=== PATIENT | female | born 1985 | race Caucasian/White ===

== ENCOUNTER → 2021-11-05 02:29 | Outpatient (CLI) | payer BC, SELFPAY ==
[2021-11-06 15:55] LABS: SARS-CoV-2 RNA PCR Negative
== END ==
PROVIDERS: PCP Family Medicine; Visit Provider Family Medicine
DX: R51.9 Headache, unspecified (principal); R11.0 Nausea; Z20.822 Contact with and (suspected) exposure to COVID-19
CPT/HCPCS: C9803; U0003; U0005

== ENCOUNTER 2022-02-06 14:13 | Outpatient (CLI) | payer BC, SELFPAY ==
--- NOTE | ~2022-02-06 | US_ITS ---
EXAMINATION: US OB <=14 wk fetus w TV DATE: 02/06/2022 15:30 INDICATION: Assess dating and viability of first trimester TECHNIQUE: Real-time pelvic ultrasound utilizing both a transvaginal and transabdominal probe was pe rformed. The interpreting radiologist was not present for the study. COMPARISON: None. FINDINGS: The uterus measures 14.1 x 5.1 x 6.9 cm. There is an intrauterine gestational sac. A yolk sac and fe radha pole are identified. The crown rump length measures 2.6 cm, which correlates with an estimated ge stational age of 9 weeks and 2 days. heart motion is identified measuring 172 beats per minute (bpm) by M-mode Doppler. 1 cm anechoic nabothian cyst at the cervix. The right ovary measures 2.9 x 2.5 x 1.9 cm. The left ovary not visualized. There is no free fluid in the pelvis. IMPRESSION: 1. Single living fetus with heart rate of 172 bpm. 2. Gestational age by ultrasound of 9 weeks 2 day(s) +/- 6 day(s) with ultrasound estimated date of delivery (ONEIL) of 09/09/2022. Reviewed, dictated and finalized at location A. IMPRESSION: 1. Single living fetus with heart rate of 172 bpm. 2. Gestational age by ultrasound of 9 weeks 2 day(s) +/- 6 day(s) with ultraso und estimated date of delivery (ONEIL) of 09/09/2022.
== END 2022-02-06 14:14 | disposition home or self-care (01) ==
LOC: ANHIMG 14:14
PROVIDERS: PCP Family Medicine; Visit Provider Student in an Organized Health Care Education/Training Program
DX: O36.80X0 Pregnancy with inconclusive fetal viability, not applicable or unspecified (principal); Z3A.09 9 weeks gestation of pregnancy
CPT/HCPCS: 76801; 76817

== ENCOUNTER 2022-07-13 13:31 | Outpatient (CLI) | payer BC, SELFPAY ==
[2022-07-13 13:44] VITALS: BP 118/77; PULSE 98
[2022-07-13 13:46] VITALS: BP 112/70; PULSE 98
[2022-07-13 14:00] VITALS: BP 114/65; PULSE 93
[2022-07-13 14:15] VITALS: BP 108/72; PULSE 97
[2022-07-13 14:29] LABS: Basophils Percent Auto 0.3 % (0.2-1.2); Eosinophils Absolute Auto 0.1 K/mm3 (0-0.3); Eosinophils Percent Auto 0.7 % (0-4.4); Hemoglobin 10.5 g/dL (12.0-15.0); Immature Granulocyte Absolute 0.07 K/mm3 (0.00-0.031); Immature Granulocyte Percent A 0.7 % (0-0.5); Lymphocytes Absolute Auto 1.47 K/mm3 (0.9-3.2); Mean Corpuscular HGB Conc 32.8 g/dl (32-36); Mean Corpuscular Hemoglobin 30.2 pg (26-34); Mean Platelet Volume 8.8 fl (7.4-10.4); Monocytes Absolute Auto 0.5 K/mm3 (0.1-0.6); Monocytes Percent Auto 4.9 % (2.6-8.5); Neutrophils Absolute Auto 8.4 K/mm3 (1.3-6.7); Neutrophils Percent Auto 79.4 % (45.5-73.1); Platelet Count Result 289 k/mm3 (150-375); Red Blood Count 3.48 M/mm3 (4.2-5.4); Red Cell Distribution Width 13.7 % (11.5-14.5); White Blood Count 10.5 K/mm3 (4.5-10.0)
--- NOTE | 2022-07-13 14:36 | PC.NURSE ---
Dr. Torres returned call and informed FHT's reactive with 20 beat accels at 31 wks gestation, pt marking and feeling good movement now. ROM plus was negative. 31 wk labs were drawn as requested. OK to discharge to home.
[2022-07-13 14:37] VITALS: BP 108/72; PULSE 97
[2022-07-13 15:53] LABS: Rapid Plasma Reagin Non-Reactive (NonReactive)
[2022-07-14 00:41] LABS: HIV 1/2 Ab P24 Ag Result Negative (Negative)
== END 2022-07-13 14:40 | disposition home or self-care (01) ==
LOC: ANHOBOP 13:35 → ANHOBPP 13:35
PROVIDERS: PCP Family Medicine; Visit Provider Student in an Organized Health Care Education/Training Program
DX: O36.8190 Decreased fetal movements, unspecified trimester, not applicable or unspecified (principal); Z3A.00 Weeks of gestation of pregnancy not specified
CPT/HCPCS: 36415; 59025; 84112; 85025; 86592; 86703; 99199; G0432

== ENCOUNTER 2022-08-29 07:24 | Outpatient (RCR) | payer BC, SELFPAY ==
[2022-07-18 09:44] VITALS: BP 115/73; PULSE 102
[2022-08-29 08:20] VITALS: BP 133/79; PULSE 99
== END 2022-09-22 07:42 | disposition home or self-care (01) ==
LOC: ANHOBOP 07:24
PROVIDERS: PCP Family Medicine; Visit Provider Student in an Organized Health Care Education/Training Program
DX: O36.8130 Decreased fetal movements, third trimester, not applicable or unspecified (principal); Z3A.32 32 weeks gestation of pregnancy; Z3A.37 37 weeks gestation of pregnancy
CPT/HCPCS: 59025

== ENCOUNTER 2022-08-29 11:42 | Observation (INO) | payer BC, SELFPAY ==
[2022-08-29 11:55] VITALS: BP 130/88; PULSE 93
[2022-08-29 12:00] VITALS: BP 124/80; PULSE 91
--- NOTE | 2022-08-29 12:05 | PC.NURSE ---
called Dr. Torres notified pt here due to fall. Pt states caught herself with hand and Knee and hit right side of abdomen. Order received to monitor for one hour and if reactive okay to discharge
[2022-08-29 12:15] VITALS: BP 126/80; PULSE 90
[2022-08-29 12:30] VITALS: BP 119/79; PULSE 89
[2022-08-29 12:45] VITALS: BP 124/78; PULSE 84
--- NOTE | 2022-08-29 12:58 | PC.NURSE ---
called Dr. Torres reported reactive NST. also made aware of pt asking about ultrasound.Dr. Torres states now need for ultrasound. okay to discharge.
[2022-08-29 13:00] VITALS: BP 119/76; PULSE 82
--- NOTE | 2022-09-19 17:53 | PM.OBTRLD ---
OB - Triage/Final Diagnosis Visit Information Comments/Additional reasons for admission: I have assessed the risk for this patient, Dana Darling, and determined that she would benefit from observation care. Final Diagnosis (1) Fall: Code(s): W19.XXXA - Unspecified fall, initial encounter Status: Acute
== END 2022-08-29 13:30 | disposition home or self-care (01) ==
PROVIDERS: Admitting Provider Student in an Organized Health Care Education/Training Program; PCP Family Medicine; Visit Provider Student in an Organized Health Care Education/Training Program
DX: Z04.3 Encounter for examination and observation following other accident (principal); W19.XXXA Unspecified fall, initial encounter; Z3A.38 38 weeks gestation of pregnancy
CPT/HCPCS: G0378; G0379

== ENCOUNTER 2022-08-31 07:56 | Outpatient (CLI) | payer BC, SELFPAY ==
[2022-08-31 08:35] LABS: Basophils Percent Auto 0.3 % (0.2-1.2); Eosinophils Percent Auto 0.2 % (0-4.4); Hematocrit 34.8 % (37.0-47.0); Hemoglobin 11.4 g/dL (12.0-15.0); Immature Granulocyte Absolute 0.07 K/mm3 (0.00-0.031); Immature Granulocyte Percent A 0.7 % (0-0.5); Lymphocytes Absolute Auto 1.11 K/mm3 (0.9-3.2); Lymphocytes Percent Auto 11.2 % (18.3-44.2); Mean Corpuscular HGB Conc 32.8 g/dl (32-36); Mean Corpuscular Volume 91.6 fl (80-100); Mean Platelet Volume 9.1 fl (7.4-10.4); Monocytes Absolute Auto 0.4 K/mm3 (0.1-0.6); Monocytes Percent Auto 3.9 % (2.6-8.5); Neutrophils Absolute Auto 8.3 K/mm3 (1.3-6.7); Neutrophils Percent Auto 83.7 % (45.5-73.1); Platelet Count Result 294 k/mm3 (150-375); Red Cell Distribution Width 14.4 % (11.5-14.5); White Blood Count 9.9 K/mm3 (4.5-10.0)
[2022-08-31 09:20] LABS: HIV 1/2 Ab P24 Ag Result Negative (Negative)
[2022-09-01 17:06] LABS: Rapid Plasma Reagin Non-Reactive (NonReactive)
== END 2022-08-31 07:57 | disposition home or self-care (01) ==
LOC: ANHLAB 07:58
PROVIDERS: PCP Family Medicine; Visit Provider Student in an Organized Health Care Education/Training Program
DX: Z01.812 Encounter for preprocedural laboratory examination (principal); O26.893 Other specified pregnancy related conditions, third trimester
CPT/HCPCS: 36415; 85025; 86592; 86703; 86900; 86901; G0432

== ENCOUNTER 2022-09-01 05:33 | Inpatient (IN) | payer BC, SELFPAY ==
--- NOTE | 2022-08-31 18:02 | PM.IMHP ---
H&P: HPI History of Present Illness Date/Time: 08/31/22 18:02 Chief Complaint: Scheduled repeat section Narrative: Patient is a 36-year-old LMP 12/02/2021 currently 39 weeks gestation with ONEIL 09/08/2022 who presented to labor and delivery for a scheduled repeat section. Patient is dated by LMP consistent with ultrasound on 02/06/2022 at 9 weeks gestation. Patient has a history of a previous section x1. She was extensively counseled regarding delivery options. Patient declined TOLAC and desires a repeat section. In general, patient reports feeling well today. Denies any vaginal bleeding, leakage of fluid, or contractions. Reports good movement. Review of Systems Review of Systems: All systems reviewed & are unremarkable except as noted in HPI and below Constitutional: Constitutional: Reports as per HPI and Reports no additional constitutional complaints Eyes: Eyes: Reports as per HPI and Reports no additional eye complaints ENT: Reports system reviewed and no additional complaints, except as documented and Reports as per HPI Cardiovascular: Cardiovascular: Reports as per HPI and Reports no additional cardiovascular complaints Respiratory: Respiratory: Reports as per HPI and Reports no additional respiratory complaints Gastrointestinal: Gastrointestinal: Reports as per HPI and Reports no additional gastrointestinal complaints Genitourinary: Genitourinary: Reports no additional female genitourinary complaints and Reports as per HPI Musculoskeletal: Musculoskeletal: Reports no additional musculoskeletal complaints and Reports as per HPI Integumentary/Breasts: Skin/Breast: Reports system reviewed and no additional complaints, except as docu and Reports as per HPI Neurologic: Reports system reviewed and no additional complaints, except as documented and Reports as per HPI Psychiatric: Psychiatric: Reports no additional psychiatric complaints and Reports as per HPI Endocrine: Endocrine: Reports no additional endocrine complaints and Reports as per HPI Hematologic/Lymphatic: Hematologic/Lymphatic: Reports no additional hematologic/lymphatic complaints and Reports as per HPI Allergic/Immunologic: Allergic/Immunologic: Reports no additional allergic/immunologic complaints and Reports as per HPI PMFSH Past Medical History Medical History Chronic headaches Migraines Surgical History Surgical History History of section 2014 History of urinary tract surgery 1991 Family History Family History Father B-cell lymphoma Diabetes mellitus Mother Diabetes mellitus Hypertension Depression Sibling Depression Grandparent Cerebrovascular accident Social History Social History Smoking status: Never smoker Alcohol intake: never Substance use: never Spiritual care concerns: No Meds Home Medications and Allergies Home Medications Medication Instructions Recorded Confirmed Type montelukast 10 mg tablet 10 mg PO DAILY 11/10/21 05/17/22 History vits 75-iron 28 mg-folic 1 pkg PO DAILY 01/26/22 08/24/22 History acid 800 mcg-omega-3 oral combo pack (One A Day Women's DHA) ferrous sulfate 325 mg (65 mg 325 mg PO DAILY #90 tabs 07/17/22 08/24/22 Rx iron) tablet Allergies Allergy/AdvReac Type Severity Reaction Status Date / Time No Known Allergies Allergy Verified 08/24/22 12:08 Exam Const: General: cooperative, healthy appearing, comfortable and no acute distress HENMT: Head: normal to inspection Ears: hearing grossly normal bilaterally Eyes: General: appearance normal, both eyes and all related structures Neck: Neck: normal visual inspection Resp: Effort & Inspection: normal respirator
[2022-09-01] VITALS (58 sets, daily range): BP systolic 112–135; BP diastolic 65–99; PULSE 67–103; RESP 15–18; TEMP 36.6–37.6; O2SAT 96–100; BMI 46.5
--- NOTE | 2022-09-01 05:55 | LDADM ---
This patient, Dana Darling, was admitted to Labor/Delivery/Recovery 120 on 09/01/22 at 05:33. Plans for labor, pain management and were discussed with patient. Patient/family oriented to hospital policies and general routines including ID bracelet, bed and alarms, visiting hours, pain management, procedures, bathroom and other care routines, personal items, smoking policy, room service/diet and guest tray routines, security routines, and visiting hours. Patient/Family are encouraged to report perceived risks to care and to ask questions if they do not understand what they are told or what they should do. See OBIX for further documentation.
[2022-09-01] MEDS: LACTATED RINGERS 1,000 ML 125 ML IV CONT (05:58)
--- NOTE | 2022-09-01 06:37 | P.PNAN_ITS ---
Anes - Initial Pre Proc Eval Procedure: Operation Date: 09/01/22 07:30 Proposed Procedures p Repeat Section - Yolanda Torres MD Date/Time: 09/01/22 06:37 Surgeon: Yolanda Torres MD Pre Op Diagnosis: C/S Patient Data Age: 36 Gender: F Height: 1.55 m Weight: 111.8 kg Last Vital Signs Temp 37.3 C 09/01/22 06:09 Pulse 95 09/01/22 06:08 BP 125/83 09/01/22 06:08 O2 Del Method Room Air 09/01/22 05:51 Allergies Allergy/AdvReac Type Severity Reaction Status Date / Time No Known Allergies Allergy Verified 09/01/22 06:22 Home Medications Medication Instructions Recorded Confirmed Type montelukast 10 mg tablet 10 mg PO DAILY 11/10/21 09/01/22 History vits 75-iron 28 mg-folic 1 pkg PO DAILY 01/26/22 09/01/22 History acid 800 mcg-omega-3 oral combo pack (One A Day Women's DHA) ferrous sulfate 325 mg (65 mg 325 mg PO DAILY #90 tabs 07/17/22 09/01/22 Rx iron) tablet Patient hx anesthesia problems: none Family hx anesthesia problems: none Results Review: All pre-operative results and documents have been reviewed as part of the pre- operative evaluation. [facility] Past Medical History Medical History Chronic headaches Migraines Surgical History Surgical History History of section 2014 History of urinary tract surgery 1991 Family History Family History Father B-cell lymphoma Diabetes mellitus Mother Diabetes mellitus Hypertension Depression Sibling Depression Grandparent Cerebrovascular accident Social History Social History Smoking status: Never smoker Alcohol intake: never Substance use: never Lack of Transportation: No Lack of Food: Never True Current Housing: I Have Housing Concerned About Future Housing: No Difficulty Paying Gas/Electric Bills: No Difficulty Paying for Meds: No Currently Unemployed: No Education: Bachelor's Degree Difficulty w/ Childcare or Family Care: No Spiritual care concerns: No Anes - Eval Final PreProcedure Day of Procedure 09/01/22 06:37 Patient weight: morbidly obese Heart: regular rate and rhythm Lungs: clear to auscultation Airway: Mallampati scale class II Neurological: alert and oriented Last oral intake: >/= 8 hours ASA classification: III Emergent: no Anesthetic plan: proceed Anesthesia type and monitoring: regional spinal and standard monitoring Results Review: All pre-operative results and documents have been reviewed as part of the pre- operative evaluation. Informed Consent: The patient's anesthetic plan and its attendant risks and benefits were discussed with the patient/family/POA. Questions were solicited and answers provided to the satisfaction of the patient/family/POA.
[2022-09-01] MEDS: ceFAZolin 2 GM/D5W 50 ML 2 GM/50 ML BAG IVPB (07:27)
--- NOTE | 2022-09-01 07:27 | WPDHPUPDATE1 ---
History and Physical Update Update Date/Time: 09/01/22 07:27 History and Physical has been reviewed, including an updated exam of the patient. There are NO changes in the patient's condition. Risks, benefits, and alternatives have been discussed and questions answered. Patient agrees to proceed with procedure.
--- NOTE | 2022-09-01 08:38 | W.PM.PROC2 ---
Procedure Note - Detailed Date of Procedure 09/01/22 Pre-op Diagnosis IUP at 39w Previous section x 1 Post-op Diagnosis Same Procedure Performed Repeat section via Pfannenstiel Surgeon Yolanda Torres MD [employer] Level Business [employer]st Malachi Muniz Anesthesia Spinal Findings Live female infant in cephalic presentation, apgars 8/9, weighing 9 lbs. 8 oz., normal appearing uterus, ovaries, and fallopian tubes bilaterally Description of Procedure The patient was taken to the operating room, where she self-transferred to the operating room table. Spinal anesthesia was administered and found to be adequate. The patient was placed in dorsal supine position with a leftward tilt. She was prepped and draped in the usual sterile fashion. Spinal anesthesia was tested and found to be adequate. A Pfannenstiel skin incision was made with a scalpel and carried through to underlying layer of fascia with the Bovie. The fascia was incised in the midline and the incision was extended laterally with the use of forceps and Graves scissors. The inferior aspect of the fascial incision was grasped with Oracio clamps, elevated, and the underlying rectus muscle were dissected off with Graves scissors. Attention was then turned to the superior aspect of the fascial incision, which in a similar manner, was grasped with Oracio clamps, elevated, and the underlying rectus muscles were also dissected off with Graves scissors. The rectus muscles were in the midline and the peritoneal cavity was entered bluntly. This incision was extended superiorly and inferiorly with good visualization of the bladder and care was taken to avoid blood vessels. A bladder blade was inserted. The vesicouterine peritoneum was identified and incised sharply with Metzenbaum scissors. This incision was extended laterally with Metzenbaum scissors and a bladder flap was created digitally. The bladder blade was replaced. A low-transverse uterine incision was made with a scalpel. This incision was extended laterally with bandage scissors. Amniotomy was performed. Clear amniotic fluid was noted. The 's head was grasped and gently guided to the level of the uterine incision. The 's head was delivered easily and atraumatically without difficulty. A nuchal cord x 1 was noted and reduced. The infant's neck, shoulders, and rest of body delivered easily with gentle fundal pressure. The 's nose and mouth were suctioned bulb suction. The was crying spontaneously. The cord was clamped and cut and the was handed off to waiting nursing staff. A segment of cord was collected for cord gases. Cord blood was also collected. With gentle traction while delivering the placenta, the uterus completely inverted. The placenta appeared to be slightly adherent (more than expected) to the surface of the endometrium, however, was able to be manually . There was some concern for possible accreta and the placenta was handed off field to be sent to pathology for analysis. Uterus was then quickly and easily manually reduced and normal anatomy was restored. Uterus was cleared of all clots and debris. The uterine incision was reapproximated with 0 Vicryl in a running, locked fashion. A second imbricating layer using 0 Monocryl performed. Excellent hemostasis was noted. On inspection, the uterus, ovaries, and fallopian tubes appeared to be normal bilaterally. The uterus was replaced into the abdominal cavity. The gutters were cleared of all clots and debris. The uterine incision was inspected again. Two pinpoint areas of oozing just beneath incision were noted. These areas were made hemostatic with two figure of eight sutures using 0 Monocryl. Excellent hemostasis was noted. Hemaderm was applied across the uterine incision. Interceed was also applied across the uterine incision and anterior surface of the uterus. The peritoneum was reapproximated with 2-0 Monocryl. The fascia was then closed with 0 Vicryl in a running f
--- NOTE | 2022-09-01 09:12 | P.PCNOB_ITS ---
OB - Delivery Note Procedure Delivery date: 09/01/22 Procedure: Procedures Operation Date: 09/01/22 07:30 <No data on this case meets the specified criteria> Events: Previous Delivery Intrapartal Events: Other (uterine inversion) Route of delivery: Specimen: Yes (placenta and cord, cord blood, and cord gases) Quantitative Blood Loss (ml): 505 Anesthesia type: Spinal Disposition: PACU Complications: No immediate complications, however, complete uterine inversion occurred during procedure [place] Baby Date of : 09/01/22 Time of : 07:51 Weeks of gestation at delivery: 39 Infant gender: Female Weight (pounds): 9 Weight (ounces): 8 presentation: vertex Placenta delivery description: Manual Removal Cord Vessel Description: Nuchal Cord (x1) score one minute: 8 score five minutes: 9 AMG Delivery Billing Delivery Delivery: Delivery Charge
[2022-09-01] MEDS: OXYTOCIN 30 UNITS/NS 500 ML 30 UNITS/500 ML BAG 125 UNITS IV CONT (10:27)
--- NOTE | 2022-09-01 10:43 | PC.NURSE ---
Patient transferred to post room #285 via ( bed ). Support person present. Oriented to unit, room, information board, rooming in, admission packet and security measures. Patient verbalizes understanding.
--- NOTE | 2022-09-01 11:22 | PC.NURSE ---
[id number] Introductions were made, then consulted with patient to assess needs related to . Mother led the conversation with her?experience so far stating she was told her hold her tongue up and she breastfed on/off. We discussed the benefits of skin to skin (unwrapping infant and placing vertically on her chest), responsive feeding and how to watch for early feeding signs, frequency of feeding on demand about every 8-12 times in 24 hours (every 2-3 hours), getting blood sugars before feeding or if it has been 6 hours from the last feeding may be very sleeping today especially hours 2-6 after delivery. Mother voiced understanding of responsive feedings, stimulating with skin to skin, massage touch, talking to to encourage , to call if does not wake to breastfeed or if there is discomfort with . Resources provided for inpatient and outpatient services using a resource guide. Mother voiced understanding of information and will call if there is a request for assistance. Primary RN is present and is reviewing PP packet now with the mom/baby guide.
[2022-09-01] MEDS: DEXTROSE 5%/0.45% SOD CHL 1,000 ML 125 ML IV CONT (14:53)
[2022-09-01] MEDS: HYDROcodone/acetaminophen (*CRX) 5-325 MG TABLET 1 TAB PO ×2 (16:29→21:11)
[2022-09-01] MEDS: DOCUSATE SODIUM 100 MG CAPSULE PO (16:30)
--- NOTE | 2022-09-01 17:10 | PM.OBPNVD ---
OB - PN: Subj Subjective Date/time seen: 09/01/22 09:15 Discussion had with patient and in PACU shortly after surgery regarding operative findings, including the uterine inversion and densely adherent placenta, suggestive of placenta accreta. Described to patient what occurred and that the placenta had to be peeled off of the surface of the uterus similar to detaching velcro, which is abnormal. Although not previously suspected or diagnosed, I expressed concern that this may have been placenta accreta. Explained what placenta accreta is in detail to patient and as well as some of the risk factors for developing this condition. Also discussed possible risk of recurrence in future pregnancies and potential for placenta accreta spectrum. Patient made aware that should she become again, will need to seek MFM evaluation early on. Also briefly discussed that if she were to develop placenta accreta spectrum in the future, she would definitively need care and delivery at a tertiary care center and that it is quite possible that she would be scheduled to deliver early with a planned hysterectomy. Reassured patient that surgery today went well, however, I have a high suspicion for placenta accreta and that they may wish to take this into consideration when deciding whether or not to pursue another and may even benefit from an MFM consult beforehand. All questions and concerns addressed. OB - PN A/P Time Spent With Patient Time: Total time spent is greater than 50% in coordination of care (as documented) at patient's floor/unit and/or counseling patient:
[2022-09-02] MEDS: HYDROcodone/acetaminophen (*CRX) 10-325 MG TABLET 1 TAB PO ×4 (02:44→13:32)
[2022-09-02 05:12] VITALS: BP 123/78; PULSE 82; RESP 18; TEMP 37.1; O2SAT 96
[2022-09-02 05:53] LABS: Basophils Percent Auto 0.2 % (0.2-1.2); Eosinophils Absolute Auto 0.1 K/mm3 (0-0.3); Eosinophils Percent Auto 0.4 % (0-4.4); Hematocrit 33.5 % (37.0-47.0); Immature Granulocyte Absolute 0.07 K/mm3 (0.00-0.031); Immature Granulocyte Percent A 0.6 % (0-0.5); Lymphocytes Percent Auto 8.2 % (18.3-44.2); Mean Corpuscular HGB Conc 32.8 g/dl (32-36); Mean Corpuscular Hemoglobin 29.5 pg (26-34); Mean Corpuscular Volume 89.8 fl (80-100); Monocytes Absolute Auto 0.7 K/mm3 (0.1-0.6); Neutrophils Absolute Auto 10.3 K/mm3 (1.3-6.7); Neutrophils Percent Auto 84.6 % (45.5-73.1); Platelet Count Result 274 k/mm3 (150-375); Red Blood Count 3.73 M/mm3 (4.2-5.4); Red Cell Distribution Width 14.4 % (11.5-14.5); White Blood Count 12.1 K/mm3 (4.5-10.0)
[2022-09-02] MEDS: MULTIVIT/MIN/PREN/FOL AC/IRON TABLET 1 TAB PO (07:32)
[2022-09-02] MEDS: DOCUSATE SODIUM 100 MG CAPSULE PO ×2 (07:32→15:55)
--- NOTE | 2022-09-02 09:19 | WPDANLDPN2 ---
Anes-Prog Note L&D Date/Time: 09/02/22 09:19 Comfortable throughout: section Neuraxial method: spinal Epidural/Spinal procedure site: clean & non-tender Neuro status: Neuro function grossly intact. Cardiovascular status: normal Respiratory status: normal Airway patency: baseline Mental status: baseline Post-Op hydration status: normal Vital Signs: Last Vital Signs Temp 37.1 C 09/02/22 05:12 Pulse 82 09/02/22 05:12 Resp 18 09/02/22 05:12 BP 123/78 09/02/22 05:12 Pulse Ox 96 09/02/22 05:12 O2 Del Method Room Air 09/02/22 07:30 Pain score (VAS): 3/10 I/O: Intake & Output 09/01/22 09/02/22 09/02/22 23:59 07:59 15:59 Intake Total 2240 600 Output Total 1800 2825 Balance 440 -2225 Post-procedural complaints: none Patient feedback: Patient satisfied with anesthetic care.
--- NOTE | 2022-09-02 09:20 | WPDANLDNPN2 ---
Anes-Prog Note L&D-Neuraxial Date/Time: 09/02/22 09:20 Neuraxial medications: intrathecal PF morphine Opiod-related complaints: none Patient feedback: Patient satisfied with post-operative pain management.
[2022-09-02 09:24] VITALS: BP 143/86; PULSE 87; RESP 18; TEMP 37; O2SAT 99
--- NOTE | 2022-09-02 10:43 | P.PNOB_ITS ---
OB - PN: Subj Subjective Date/time seen: 09/02/22 10:43 Patient doing well this AM. Pain reasonably controlled with medication. Denies any headache, chest pain, SOB, N/V. Tolerating PO diet. Minimal lochia. Ambulating well. Voiding well after gaxiola removal. No flatus yet. OB - PN: Obj Data Labs CBC & Chem 7: 09/02/22 05:35 Labs: Laboratory Results - last 24 hr 09/02/22 05:35 WBC 12.1 H RBC 3.73 L Hgb 11.0 L Hct 33.5 L MCV 89.8 MCH 29.5 MCHC 32.8 RDW 14.4 Plt Count 274 MPV 9.0 Immature Gran % (Auto) 0.6 H Neut % (Auto) 84.6 H Lymph % (Auto) 8.2 L [place] % (Auto) 6.0 Eos % (Auto) 0.4 Baso % (Auto) 0.2 Lymph # (Auto) 1.00 [place] # (Auto) 0.7 H Eos # (Auto) 0.1 Baso # (Auto) 0.0 Abs Immat Gran (auto) 0.07 H Absolute Neuts (auto) 10.3 H Absolute Nucleated RBC 0.0 Nucleated RBC % 0.0 OB - PN A/P Assessment and Plan (1) Delivery by section using transverse incision of lower segment of uterus: Code(s): O82 - Encounter for delivery without indication Status: Acute Assessment and Plan: POD#1 doing well continue routine postoperative care encourage ambulation and use of IS BP mildly elevated today, will continue to monitor Time Spent With Patient Time: Total time spent is greater than 50% in coordination of care (as documented) at patient's floor/unit and/or counseling patient: Review of Systems Review of Systems: All systems reviewed & are unremarkable except as noted in HPI and below Exam Const: General: cooperative, healthy appearing, comfortable and no acute distress GI: Inspection: non-distended GI Palp: Yes Soft to palpation and No Tenderness to palpation present (GI) Other: fundus firm below umbilicus inc c/d/i Extrem: Right lower extremity: edema (trace) Left lower extremity: edema (trace)
[2022-09-02] MEDS: IBUPROFEN 600 MG TABLET PO ×3 (10:49→22:36)
[2022-09-02 16:00] VITALS: BP 114/77; PULSE 83; RESP 18; TEMP 36.4; O2SAT 97
[2022-09-02] MEDS: HYDROcodone/acetaminophen (*CRX) 5-325 MG TABLET 1 TAB PO ×3 (16:46→22:35)
[2022-09-02 19:42] VITALS: BP 135/78; PULSE 71; RESP 18; TEMP 36.4; O2SAT 97
[2022-09-03] VITALS (8 sets, daily range): BP systolic 127–148; BP diastolic 72–99; PULSE 73–95; RESP 16–18; TEMP 36.7–37; O2SAT 98–100
[2022-09-03] MEDS: HYDROcodone/acetaminophen (*CRX) 5-325 MG TABLET 1 TAB PO ×7 (02:47→22:01)
[2022-09-03] MEDS: IBUPROFEN 600 MG TABLET PO ×3 (04:15→19:08)
[2022-09-03] MEDS: DOCUSATE SODIUM 100 MG CAPSULE PO ×2 (09:39→16:03)
[2022-09-03] MEDS: MULTIVIT/MIN/PREN/FOL AC/IRON TABLET 1 TAB PO (09:39)
--- NOTE | 2022-09-03 10:55 | PM.OBPNVD ---
OB - PN: Subj Subjective Date/time seen: 09/03/22 10:55 Patient doing well. Pain well controlled with medication. Mild back pain she experienced yesterday has improved. Minimal lochia. Denies any headache, chest pain, SOB, N/V. Tolerating PO diet. Ambulating without difficulty. Voiding well. Passing flatus. OB - PN: Obj Data Labs CBC & Chem 7: 09/02/22 05:35 OB - PN A/P Assessment and Plan (1) Delivery by section using transverse incision of lower segment of uterus: Code(s): O82 - Encounter for delivery without indication Status: Acute Assessment and Plan: POD#2 doing well continue routine postoperative care encourage ambulation and use of IS dc home today in stable condition emergency precautions reviewed f/u in office in 2 weeks for postoperative visit (2) Elevated blood pressure reading: Code(s): R03.0 - Elevated blood-pressure reading, without diagnosis of hypertension Status: Acute Assessment and Plan: elevated BP again this AM pt states BP was taken just after receiving pain medication that had not yet taken effect possibly due to pain/discomfort will repeat further management pending results Time Spent With Patient Time: Total time spent is greater than 50% in coordination of care (as documented) at patient's floor/unit and/or counseling patient: Review of Systems Review of Systems: All systems reviewed & are unremarkable except as noted in HPI and below Exam Const: General: cooperative, healthy appearing, comfortable and no acute distress GI: Inspection: non-distended GI Palp: Yes Soft to palpation and No Tenderness to palpation present (GI) Other: fundus firm below umbilicus inc. c/d/i Extrem: Right lower extremity: edema (trace) Left lower extremity: edema (trace)
--- NOTE | 2022-09-03 11:09 | PM.OBDSVD ---
DS: Admitting Diagnosis Discharge Date 09/03/22 Admitting Diagnosis IUP at 39w Previous C/S x 1 DS: Discharge Diagnosis Discharge Diagnosis (1) Delivery by section using transverse incision of lower segment of uterus: Code(s): O82 - Encounter for delivery without indication Status: Acute OB - DS: Summary OB Procedures : None OB Procedures Intrapartum: OB Procedures: : None Peripartum Data Procedures: Procedures Operation Date: 09/01/22 07:30 Actual Procedure Side Surgeon p Repeat Section Not Applicable Yolanda Torres MD Time Spent with Patient Time attestation: Total time spent providing and/or coordinating discharge services: DS: Data Data Completed and Pending Pending studies at discharge: Pending at discharge 09/01/22 09:24 Surgical [PTH] Routine Discharge Plan Discharge Attending physician on discharge: Yolanda Torres Discharging Clinician: Yolanda Torres Anticipated Discharge Date/Time: 09/03/22 12:00 Patient Disposition: Home, Self-Care Activity: may drive after 2 weeks and pelvic rest Diet: regular Discharge Instructions: Call office ([phone]) to schedule the following appointments: 1. Postoperative/wound check in 2 weeks. 2. visit in 4-6 weeks. You may take Ibuprofen 600mg every 6 hours as needed for pain. I have sent a prescription for a stronger pain medication, Carrier, to your pharmacy. You may take this as prescribed for breakthrough pain (pain that is not controlled with Ibuprofen). No driving for at least two weeks. You also may not drive while taking narcotics. Pain medication may make you constipated. It may be helpful to take an [id number] stool softener, such as Colace and/or Senokot, along with the pain medication to help lessen constipation. Call office or go to ED for pain not controlled with medication, headache, chest pain, shortness of breath, fever, chills, persistent nausea or vomiting, severe abdominal pain, heavy vaginal bleeding >2 pads/hour, foul vaginal discharge or odor, any redness near incision, severe pain, pus or drainage from incision site, or problems with your breasts. Education: Mom and Baby Guide Given to: Mother Follow-Up: Call your delivering provider's office for an appointment to be seen in: 6 Weeks Mom and baby should come to the [facility] for the follow-up appointment. Appointment Date/Time: September 04, 2022 at 10:00 am What to expect at your follow-up visit: Blood Pressure Check Physical Assessment Call [phone] if you are unable to keep your appointment time. BREAST CARE: * Wear a snug supportive bra. * For engorgement discomfort: Breast Feeding: * Apply warm moist washcloths * Express milk as needed to relieve engorgement * Wear loose clothing Bottle Feeding: * May apply ice packs * For sore nipples: * Identify correct latch-on * Apply warm moist washcloths before and after nursing * Air dry nipples after nursing * May apply Lansinoh cream to nipples EPISIOTOMY/PERINEAL CARE: * Until bleeding stops, use your margaret bottle after urinating * Change your pad frequently throughout the day * You may take sitz baths several times a day (fill your bathtub with warm water and soak for 20 minutes.) Do NOT bathe in the water * No tub baths until seen by your physician - You may shower ACTIVITY: * Rest as much as possible. * Do not exercise or lift anything heavier than your baby (such as laundry or other children.) * Avoid stairs or driving as much as possible. * Do not put anything into the vagina. No douching, tampons, or sexual activity until seen by physician NOTIFY PHYSICIAN IF YOU HAVE ANY QUESTIONS OR IF ANY OF THE FOLLOWING SYMPTOMS OCCUR: * If your episiotomy or incision becomes red, swollen, or more painful than what you have ex
[2022-09-03 12:42] LABS: Hematocrit 36.7 % (37.0-47.0); Hemoglobin 11.7 g/dL (12.0-15.0); Mean Corpuscular HGB Conc 31.9 g/dl (32-36); Mean Corpuscular Hemoglobin 29.8 pg (26-34); Mean Corpuscular Volume 93.4 fl (80-100); Mean Platelet Volume 8.6 fl (7.4-10.4); Platelet Count Result 322 k/mm3 (150-375); Red Blood Count 3.93 M/mm3 (4.2-5.4); Red Cell Distribution Width 14.5 % (11.5-14.5); White Blood Count 11.3 K/mm3 (4.5-10.0)
[2022-09-03 12:53] LABS: Uric Acid 4.6 mg/dL (2.5-7.5)
[2022-09-03 12:54] LABS: Alanine Aminotransferase 24 U/L (6-35); Albumin Level 3.4 g/dL (3.5-5.1); Alkaline Phosphatase 127 U/L (38-126); Anion Gap 7 mmol/L (8-16); Aspartate Amino Transferase 36 U/L (14-36); Bilirubin,Total 0.3 mg/dL (0.2-1.3); Blood Urea Nitrogen 8 mg/dL (7-17); Calcium 8.7 mg/dL (8.4-10.2); Carbon Dioxide 28 mmol/L (22-30); Chloride 103 mmol/L (98-107); Estimated CRCL calculation 113 ml/min; Estimated Glomerular Filt Rate > 60; Glucose 67 mg/dL (65-110); Potassium 4.2 mmol/L (3.4-5.0); Sodium 138 mmol/L (137-145)
[2022-09-03 14:27] LABS: Creatinine Urine 73.1 mg/dL; Total Protein Urine Random 59 mg/dL; Ur Ttl Prot Creatinine Ratio 0.81 mg/mg (0-0.20)
[2022-09-03] MEDS: SIMETHICONE 80 MG TAB.CHEW PO ×3 (16:03→22:01)
[2022-09-04] MEDS: SIMETHICONE 80 MG TAB.CHEW PO ×2 (01:10→11:21)
[2022-09-04] MEDS: IBUPROFEN 600 MG TABLET PO ×2 (01:10→08:00)
[2022-09-04] MEDS: HYDROcodone/acetaminophen (*CRX) 5-325 MG TABLET 1 TAB PO ×4 (01:10→11:19)
[2022-09-04 04:00] VITALS: BP 138/88; PULSE 82; RESP 16; TEMP 37.1
[2022-09-04 07:35] VITALS: BP 140/89; PULSE 81; RESP 18; TEMP 37.2; O2SAT 100
[2022-09-04] MEDS: DOCUSATE SODIUM 100 MG CAPSULE PO (09:00)
[2022-09-04] MEDS: MULTIVIT/MIN/PREN/FOL AC/IRON TABLET 1 TAB PO (09:00)
--- NOTE | 2022-09-04 09:09 | PM.OBPNVD ---
OB - PN: Subj Subjective Date/time seen: 09/04/22 09:09 Patient doing well. Pain well controlled with medication. Minimal lochia. Denies any headache, chest pain, SOB, N/V, visual disturbances, or RUQ tenderness. Tolerating PO diet. Ambulating without difficulty. Voiding well. Passing flatus. OB - PN: Obj Data Labs CBC & Chem 7: 09/03/22 12:38 09/03/22 12:38 Labs: Laboratory Results - last 24 hr 09/03/22 09/03/22 09/03/22 12:38 12:38 12:38 WBC 11.3 H RBC 3.93 L Hgb 11.7 L Hct 36.7 L MCV 93.4 MCH 29.8 MCHC 31.9 L RDW 14.5 Plt Count 322 MPV 8.6 Sodium 138 Potassium 4.2 Chloride 103 Carbon Dioxide 28 Anion Gap 7 L BUN 8 Creatinine 0.70 Estim Creat Clear Calc 113 Estimated GFR > 60 Glucose 67 Uric Acid 4.6 Calcium 8.7 Total Bilirubin 0.3 AST 36 ALT 24 Alkaline Phosphatase 127 H Total Protein 7.0 Albumin 3.4 L U Random Total Protein Urine Creatinine Protein/Creat Ratio 2 09/03/22 14:07 WBC RBC Hgb Hct MCV MCH MCHC RDW Plt Count MPV Sodium Potassium Chloride Carbon Dioxide Anion Gap BUN Creatinine Estim Creat Clear Calc Estimated GFR Glucose Uric Acid Calcium Total Bilirubin AST ALT Alkaline Phosphatase Total Protein Albumin U Random Total Protein 59 Urine Creatinine 73.1 Protein/Creat Ratio 2 0.81 H OB - PN A/P Assessment and Plan (1) Delivery by section using transverse incision of lower segment of uterus: Code(s): O82 - Encounter for delivery without indication Status: Acute Assessment and Plan: POD#3 doing well continue routine postoperative care encourage ambulation and use of IS dc held yesterday, will dc home today in stable condition emergency precautions reviewed f/u in office in 1 week for BP/postoperative visit (2) hypertension: Code(s): O16.5 - Unspecified maternal hypertension, complicating the puerperium Status: Acute Assessment and Plan: pt with mildly elevated BP throughout day yesterday asymptomatic labs WNL with exception of urine, however, possibly contaminated with lochia BP WNL overnight and this AM will dc home Rx for BP cuff sent to pharmacy with instructions to take BP at home twice per day and record in log f/u in office in 1 week for BP check strict emergency precautions reviewed Time Spent With Patient Time: Total time spent is greater than 50% in coordination of care (as documented) at patient's floor/unit and/or counseling patient: Review of Systems Review of Systems: All systems reviewed & are unremarkable except as noted in HPI and below Exam Const: General: cooperative, healthy appearing, comfortable and no acute distress GI: Inspection: non-distended GI Palp: Yes Soft to palpation and No Tenderness to palpation present (GI) Other: fundus firm below umbilicus inc c/d/i Extrem: Right lower extremity: no edema Left lower extremity: no edema
[2022-09-04 09:45] VITALS: PULSE 81; RESP 18; O2SAT 100
[2022-09-05 09:39] VITALS: BP 127/83; PULSE 88; RESP 16; TEMP 36.9; O2SAT 98
== END 2022-09-04 12:05 | disposition home or self-care (01) | DRG 788 ==
LOC: ANHLDR 05:35 → ANHOB2 10:47
PROVIDERS: Admitting Provider Student in an Organized Health Care Education/Training Program; PCP Family Medicine; Visit Provider Student in an Organized Health Care Education/Training Program
PROC: 10D00Z1 Extraction of Products of Conception, Low, Open Approach (ICD-10-PCS; CPT 59514; principal; 2022-09-01 07:30)
DX: O34.211 Maternal care for low transverse scar from previous cesarean delivery (principal); Z37.0 Single live birth; Z3A.39 39 weeks gestation of pregnancy; O69.81X0 Labor and delivery complicated by cord around neck, without compression, not applicable or unspecified; O99.892 Other specified diseases and conditions complicating childbirth; N85.5 Inversion of uterus; O43.213 Placenta accreta, third trimester; R03.0 Elevated blood-pressure reading, without diagnosis of hypertension
CPT/HCPCS: 36415; 80053; 82570; 84156; 84550; 85025; 85027; 88307; A9270; J0690; J2274; J2370; J2590; J7120

== ENCOUNTER 2022-10-27 08:12 | Emergency (ER) | payer BC, SELFPAY ==
[2022-10-27 08:25] VITALS: BP 129/83; PULSE 102; RESP 16; TEMP 37; O2SAT 100
--- NOTE | 2022-10-27 08:26 | ED.NAVMDI ---
HPI - Nausea/Vomiting/Diarrhea General Chief complaint: Nausea/Vomiting/Diarrhea Stated complaint: UPPER ABD PAIN/BACK PAIN Time Seen by Provider: 10/27/22 08:26 Source: patient Mode of arrival: ambulatory Limitations: no limitations History of Present Illness HPI Narrative: 36-year-old female presents with complaint of epigastric, right upper quadrant pain radiating to mid back since 11:00 p.m. last night. Reports that she has nausea, vomiting twice. Is having normal bowel movements. Patient reports that she ate enchiladas and black things for dinner. No history of similar pain. Patient is 8 weeks , . Patient had with no complications. All systems reviewed and negative except as noted above. Related Data Home Medications Medication Instructions Recorded Confirmed vits 75-iron 28 mg-folic 1 pkg PO DAILY 01/26/22 09/01/22 acid 800 mcg-omega-3 oral combo pack (One A Day Women's DHA) montelukast 10 mg tablet 10 mg PO DAILY PRN 09/12/22 Allergies Allergy/AdvReac Type Severity Reaction Status Date / Time No Known Allergies Allergy Verified 10/18/22 08:28 Review of Systems Review of Systems: CONSTITUTIONAL: Denies fever, chills, or sweats. EYES: Denies visual changes, redness, or discharge. ENT: Denies rhinorrhea, congestion, sore throat, or otalgia. CARDIOVASCULAR: Denies chest pain, palpitations, or edema. RESPIRATORY: Denies cough or dyspnea. GASTROINTESTINAL: Reports epigastric abdominal pain, nausea, vomiting. Denies diarrhea. GENITOURINARY: Denies dysuria or hematuria. SKIN: Denies rash or itching. MUSCULOSKELETAL: Denies back pain, joint pain, or myalgia. NEUROLOGIC: Denies headache, numbness, or weakness. PSYCHIATRIC: Denies anxiety or depression. All other systems reviewed are negative, except as documented in HPI. [facility] Past Medical History Medical History Chronic headaches Migraines Surgical History Surgical History History of section 2014 and 2021 History of urinary tract surgery 1991 Family History Family History Father B-cell lymphoma Diabetes mellitus Mother Diabetes mellitus Hypertension Depression Sibling Depression Grandparent Cerebrovascular accident Social History Social History Smoking status: Never smoker Alcohol intake: never Substance use: never Lack of Transportation: No Lack of Food: Never True Current Housing: I Have Housing Concerned About Future Housing: No Difficulty Paying Gas/Electric Bills: No Difficulty Paying for Meds: No Currently Unemployed: No Education: Bachelor's Degree Difficulty w/ Childcare or Family Care: No Spiritual care concerns: No Comments At time of signature, agree with nursing past medical, surgical, social and family history. There is no relevant family history pertinent to the presenting complaint. Exam Narrative: GENERAL: This is a well-nourished, well-developed patient, in no apparent distress. HEAD: normocephalic, atraumatic. EYES: PERRL. Sclera clear/white. Vision is grossly intact. EARS: External ears normal NOSE: External nose normal NECK: Neck supple, non-tender without lymphadenopathy, masses or thyromegaly. CARDIOVASCULAR: Regular rate and rhythm without murmurs, gallops, or rubs. RESPIRATORY: Clear to auscultation. Breath sounds equal bilaterally. No wheezes, rales, or rhonchi. GASTROINTESTINAL: Abdomen soft, nondistended. Right upper quadrant, epigastric tenderness on palpation. Bowel sounds are active. No hepato-splenomegaly, or palpable masses. No guarding. SKIN: warm, Dry, intact with no suspicious lesions or rash, good texture and turgor. NEURO: awake, alert, and oriented to person, place an
== END 2022-10-27 08:41 | disposition short-term general hospital (02) ==
PROVIDERS: Emergency Provider Nurse Practitioner Family; PCP Family Medicine
DX: R10.13 Epigastric pain (principal)
CPT/HCPCS: 99212; G0463

== ENCOUNTER 2022-10-27 08:59 | Day surgery (SDC) | payer BC, SELFPAY ==
[2022-10-27] VITALS (13 sets, daily range): BP systolic 143–173; BP diastolic 72–102; PULSE 66–91; RESP 12–20; TEMP 36.3–37.1; O2SAT 97–100; BMI 40.8
--- NOTE | ~2022-10-27 | CT_ITS ---
EXAMINATION: CT abdomen pelvis w con DATE: 10/27/2022 11:42 INDICATION: Epigastric and right upper quadrant abdominal pain for 12 hours. Nausea, vomiting, diarrh ea. section 8 weeks ago. TECHNIQUE: Computed tomography (CT) of the abdomen and pelvis was performed with 100 CC Omnipaque 350 intravenous contrast. Automated exposure control and iterative reconstruction technique were employe d. Exam dose: 1197.60 mGy-cm total exam DLP. COMPARISON: None. FINDINGS: Middle lobe calcified pulmonary granuloma. The lung bases are clear of infiltrate or consol idation. Normal heart size. No pericardial or pleural effusion. There is prominent soft tissue thickening/edema of the wall of the gallbladder and cholelithiasis. Ac native cholecystitis is suggested. No hepatic, splenic, pancreatic, adrenal or renal space-occupying mass lesion. There is right renal s carring, likely due to chronic pyelonephritis. Approximately 3 mm and 9 mm nonobstructing left renal calculi. No ureteral calculus or hydronephrosis is noted on either side. Normal caliber of the abdominal aorta. No intraperitoneal or retroperitoneal or pelvic mass lesion or adenopathy or ascites. The uterus, adnexal areas and urinary bladder are unremarkable. No bowel obstruction, bowel wall thickening, pneumatosis or intraperitoneal free air. Occasional scat tered small bowel air-fluid levels are likely due to mild adynamic ileus. Small fat-containing umbilical hernia. section scar. No suspicious osteolytic or osteoblastic lesions. IMPRESSION: Gallbladder wall thickening/edema and cholelithiasis, suggesting acute cholecystitis Left nonobstructive nephrolithiasis Right chronic pyelonephritis Status post section Reviewed, dictated and finalized at Location A. Reviewed, dictated and finalized at location B. UTATIONAL PHYSICIST IMPRESSION: Gallbladder wall thickening/edema and cholelithiasis, suggesting a cute cholecystitis Left nonobstructive nephrolithiasis Right chronic pyelonephritis Status post section
--- NOTE | 2022-10-27 09:12 | ECG_ITS ---
Measurements Intervals [place] Rate: 71 P: 55 TN: 151 QRS: 13 QRSD: 91 T: 19 QT: 395 QTc: 432 Interpretive Statements SINUS RHYTHM NORMAL ECG NO PREVIOUS ECG AVAILABLE FOR COMPARISON Electronically Signed On 10-27-2022 9:38:28 SALICYLIC ACID BLENDER by William Akbar D.O.
--- NOTE | 2022-10-27 09:17 | PC.NURSE ---
VRBO DR HOLGUIN TO ADD ON EKG, TROPONINS AND DDIMER.
[2022-10-27 09:44] LABS: Basophils Percent Auto 0.1 % (0.2-1.2); Eosinophils Percent Auto 0.1 % (0-4.4); Hematocrit 45.6 % (37.0-47.0); Hemoglobin 14.2 g/dL (12.0-15.0); Immature Granulocyte Absolute 0.04 K/mm3 (0.00-0.031); Immature Granulocyte Percent A 0.3 % (0-0.5); Immature Platelet Fraction Pct 1.5 % (0.9-11.2); Lymphocytes Absolute Auto 0.59 K/mm3 (0.9-3.2); Lymphocytes Percent Auto 4.2 % (18.3-44.2); Mean Corpuscular HGB Conc 31.1 g/dl (32-36); Mean Corpuscular Hemoglobin 28.7 pg (26-34); Mean Corpuscular Volume 92.1 fl (80-100); Mean Platelet Volume 8.6 fl (7.4-10.4); Monocytes Absolute Auto 0.4 K/mm3 (0.1-0.6); Monocytes Percent Auto 2.7 % (2.6-8.5); Neutrophils Absolute Auto 12.9 K/mm3 (1.3-6.7); Neutrophils Percent Auto 92.6 % (45.5-73.1); Platelet Count Result 475 k/mm3 (150-375); Red Blood Count 4.95 M/mm3 (4.2-5.4); White Blood Count 13.9 K/mm3 (4.5-10.0)
[2022-10-27 09:53] LABS: Add Urine Microscopic? YES; Appearance Urine Clear (Clear); Bilirubin Urine 1+ (Negative); Blood Urine 3+ (Negative); Color Urine Yellow (Yellow); Glucose Urine UA Negative (Negative); Ketones Urine 2+ mg/dL (Negative); Leukocyte Esterase Ur Trace LEU/UL (Negative); Nitrate Urine Negative (Negative); Protein Urine 1+ mg/dL (Negative); Specific Grav Ur >= 1.030 (1.001-1.035); Urobilinogen Urine 0.2 mg/dL (<2.0)
[2022-10-27 09:54] LABS: Alanine Aminotransferase 86 U/L (6-35); Albumin Level 4.8 g/dL (3.5-5.1); Alkaline Phosphatase 179 U/L (38-126); Anion Gap 10 mmol/L (8-16); Aspartate Amino Transferase 123 U/L (14-36); Bilirubin,Total 0.9 mg/dL (0.2-1.3); Blood Urea Nitrogen 13 mg/dL (7-17); Carbon Dioxide 24 mmol/L (22-30); Chloride 106 mmol/L (98-107); Estimated CRCL calculation 125 ml/min; Estimated Glomerular Filt Rate > 60; Glucose 107 mg/dL (65-110); Lipase 73 U/L (23-300); Potassium 3.9 mmol/L (3.4-5.0); Sodium 140 mmol/L (137-145)
[2022-10-27 09:59] LABS: Mucus Urine Few /lpf; RBC Urine >75 /hpf (0-2); WBC Urine 16-20 /hpf
[2022-10-27 10:04] LABS: Troponin I < 0.012 ng/mL (0.000-0.034)
[2022-10-27 10:16] LABS: Schistocytes None Seen (NORMAL)
--- NOTE | 2022-10-27 10:32 | ED.ABDPAIN ---
HPI - Abdominal Pain General Chief Complaint: Abdominal Pain Stated Complaint: abdominal pain with n/v and diarrhea x 1 day Time Seen by Provider: 10/27/22 10:31 Source: patient Mode of arrival: ambulatory Limitations: no limitations History of Present Illness HPI narrative: Patient presents with sudden onset of epigastric and right upper quadrant sharp stabbing pain radiating to her back on the same side associated with vomiting twice,. Patient reports loose stool at least 5 episodes since yesterday. Patient is status post 8 weeks ago, she denies any fever, chills or having similar symptoms in the past. Related Data Home Medications Medication Instructions Recorded Confirmed vits 75-iron 28 mg-folic 1 pkg PO DAILY 01/26/22 09/01/22 acid 800 mcg-omega-3 oral combo pack (One A Day Women's DHA) montelukast 10 mg tablet 10 mg PO DAILY PRN 09/12/22 Allergies Allergy/AdvReac Type Severity Reaction Status Date / Time No Known Allergies Allergy Verified 10/27/22 09:00 Review of Systems Review of Systems: All systems reviewed & are unremarkable except as noted in HPI and below PMFSH Past Medical History Medical History Chronic headaches Migraines Surgical History Surgical History History of section 2014 and 2021 History of urinary tract surgery 1991 Family History Family History Father B-cell lymphoma Diabetes mellitus Mother Diabetes mellitus Hypertension Depression Sibling Depression Grandparent Cerebrovascular accident Social History Social History Smoking status: Never smoker Alcohol intake: never Substance use: never Lack of Transportation: No Lack of Food: Never True Current Housing: I Have Housing Concerned About Future Housing: No Difficulty Paying Gas/Electric Bills: No Difficulty Paying for Meds: No Currently Unemployed: No Education: Bachelor's Degree Difficulty w/ Childcare or Family Care: No Spiritual care concerns: No Exam Narrative: General appearance: Well-developed, well-nourished Skin: Normal color Head: Normocephalic, nontraumatic Eyes: Clear conjunctiva ENT: Oropharynx normal, ears normal, nose normal Neck: Supple, nontender Chest and respiratory: Airway patent, no respiratory distress, no accessory muscle use Heart: Regular rate/rhythm Abdomen: Soft, mild tenderness epigastric and right upper quadrant, no organomegaly, quiet bowel sounds Vascular: Normal peripheral pulses, normal capillary refill. Musculoskeletal: Normal range of motion, nontender back Neurologic: Alert and oriented ?3, PARACHUTIST/COMBATANT DIVER QUALIFIED is normal as tested, no gross motor deficit MDM - Abdominal Pain Differential Diagnosis Differential diagnosis: Likely abdominal pain, gastroenteritis and other (Cholecystitis) Lab Data 10/27/22 09:36 10/27/22 09:36 Labs: Lab Results 10/27/22 10/27/22 10/27/22 Range/Units 09:36 09:36 09:45 WBC 13.9 H (4.5-10.0) K/mm3 RBC 4.95 (4.2-5.4) M/mm3 Hgb 14.2 (12.0-15.0) g/dL Hct 45.6 (37.0-47.0) % MCV 92.1 (80-100) fl MCH 28.7 (26-34) pg MCHC 31.1 L (32-36) g/dl RDW 14.0 (11.5-14.5) % Plt Count 475 H (150-375) k/mm3 MPV 8.6 (7.4-10.4) fl Immature Gran % (Auto) 0.3 (0-0.5) % Neut % (Auto) 92.6 H (45.5-73.1) % Lymph % (Auto) 4.2 L (18.3-44.2) % Yancey % (Auto) 2.7 (2.6-8.5) % Eos % (Auto) 0.1 (0-4.4) % Baso % (Auto)
[2022-10-27 11:17] LABS: D Dimer 1.07 ug/mL (<0.48)
[2022-10-27] MEDS: SODIUM CHLORIDE 0.9% IV 1,000 ML 999 ML IV CONT (11:21)
--- NOTE | 2022-10-27 14:18 | WPDANESEPPF ---
Anes - Initial Pre Proc Eval Procedure: Operation Date: 10/27/22 16:30 Proposed Procedures p Laparoscopic Cholecystectomy, Possible Open - Augustine Wiley DO Date/Time: 10/27/22 14:18 Surgeon: Augustine Wiley DO Pre Op Diagnosis: abdominal pain with n/v and diarrhea x 1 day Patient Data Age: 36 Gender: F Height: 1.57 m Weight: 101.3 kg Last Vital Signs Temp 36.3 C L 10/27/22 14:01 Pulse 81 10/27/22 14:01 Resp 14 10/27/22 14:01 BP 153/99 H 10/27/22 14:01 Pulse Ox 100 10/27/22 14:01 O2 Del Method Room Air 10/27/22 14:01 Allergies Allergy/AdvReac Type Severity Reaction Status Date / Time No Known Allergies Allergy Verified 10/27/22 09:00 Home Medications Medication Instructions Recorded Confirmed Type vits 75-iron 28 mg-folic 1 pkg PO DAILY 01/26/22 09/01/22 History acid 800 mcg-omega-3 oral combo pack (One A Day Women's DHA) montelukast 10 mg tablet 10 mg PO DAILY PRN 09/12/22 History norethindrone (contraceptive) 0.35 0.35 mg PO DAILY #84 tabs 10/18/22 10/18/22 Rx mg tablet Laboratory Tests 10/27/22 10/27/22 10/27/22 09:36 09:36 09:45 WBC 13.9 K/mm3 H K/mm3 (4.5-10.0) RBC 4.95 M/mm3 M/mm3 (4.2-5.4) Hgb 14.2 g/dL g/dL (12.0-15.0) Hct 45.6 % % (37.0-47.0) MCV 92.1 fl fl (80-100) MCH 28.7 pg pg (26-34) MCHC 31.1 g/dl L g/dl (32-36) RDW 14.0 % % (11.5-14.5) Plt Count 475 k/mm3 H k/mm3 (150-375) MPV 8.6 fl fl (7.4-10.4) Immature Gran % (Auto) 0.3 % % (0-0.5) Neut % (Auto) 92.6 % H % (45.5-73.1) Lymph % (Auto) 4.2 % L % (18.3-44.2) Crisp % (Auto) 2.7 % % (2.6-8.5) Eos % (Auto) 0.1 % % (0-4.4) Baso % (Auto) 0.1 % L % (0.2-1.2) Lymph # (Auto) 0.59 K/mm3 L K/mm3 (0.9-3.2) Crisp # (Auto) 0.4 K/mm3 K/mm3 (0.1-0.6) Eos # (Auto) 0.0 K/mm3 K/mm3 (0-0.3) Baso # (Auto) 0.0 K/mm3 K/mm3 (0.0-0.1) Abs Immat Gran (auto) 0.04 K/mm3 H K/mm3 (0.00-0.031) Absolute Neuts (auto) 12.9 K/mm3 H K/mm3 (1.3-6.7) Absolute Nucleated RBC 0.0 K/mm3 K/mm3 (0.0-0.012) Nucleated RBC % 0.0 % % (0.0-0.2) Platelet Estimate Slightly increased (Adequate) % Immature Plt Fraction 1.5 % % (0.9-11.2) Schistocytes None seen (NORMAL) D-Dimer Sodium 140 mmol/L mmol/L (137-145) Potassium 3.9 mmol/L mmol/L (3.4-5.0) Chloride 106 mmol/L mmol/L (98-107) Carbon Dioxide 24 mmol/L mmol/L (22-30) Anion Gap 10 mmol/L mmol/L (8-16) BUN 13 mg/dL D mg/dL (7-17) Creatinine 0.60 mg/dL L mg/dL (0.7-1.0) Estim Creat Clear Calc 125 ml/min ml/min Estimated GFR > 60 (59 - ) Glucose 107 mg/dL mg/dL (65-110) Calcium 9.0 mg/dL mg/dL (8.4-10.2) Total Bilirubin 0.9 mg/dL mg/dL (0.2-1.3) AST 123 U/L H U/L (14-36) ALT 86 U/L H U/L (6-35) Alkaline Phosphatase 179 U/L H U/L (38-126) Troponin I < 0.012 ng/mL ng/mL (0.000-0.034) Total Protein 9.0 g/dL H g/dL (6.3-8.2) Albumin 4.8 g/dL g/dL (3.5-5.1) Lipase 73 U/L U/L (23-300) Urine Color Yellow (Yellow) Urine Appearance Clear (Clear) Urine pH 6.0 (5.0-9.0) Ur Specific Hoagland >= 1.030 (1.001-1.035) Urine Protein 1+ mg/dL H mg/dL (Negative) Urine Glucose (UA) Negative mg/dL mg/dL (Negative) Urine Ketones 2+ mg/dL H mg/dL (Negative) Ur Blood (Man) 3+ H (Negative) Urine Nitrate Negative (Negative) Urine Bilirubin 1+ H (Negative) Urine Urobilinogen 0.2 mg/dL mg/dL (<2.0)
[2022-10-27 14:21] LABS: Influenza A QL RT-PCR Negative (Negative); Influenza B QL RT-PCR Negative (Negative); SARS-CoV-2 RNA PCR Negative
--- NOTE | 2022-10-27 14:43 | PM.IMHP ---
H&P: HPI History of Present Illness Date/Time: 10/27/22 14:43 Chief Complaint: Epigastric pain Narrative: This is a 36-year-old woman who presented to the emergency department this morning with epigastric pain that started around 10:00 p.m. last night. She had eaten enchiladas was for dinner last night. She has never experienced any symptoms like this in the past. She denies any dark urine or jaundice. Her symptoms have actually slightly improved since she was in the ER and right now her pain is very mild. A CT was performed in the emergency department and showed evidence of acute calculous cholecystitis. Her liver enzymes are slightly elevated but bilirubin is normal. Her white blood count is also slightly elevated at 13.9. She is 8 weeks and underwent for delivery. Postoperative course has been uncomplicated and her baby is doing well. Review of Systems Review of Systems: All systems reviewed & are unremarkable except as noted in HPI and below Constitutional: Constitutional: Denies fever(s) Eyes: Eyes: Denies change in vision ENT: Denies hearing loss, Denies neck pain and Denies sore throat Cardiovascular: Cardiovascular: Denies chest pain and Denies dyspnea Respiratory: Respiratory: Denies cough, Denies dyspnea and Denies wheezing Genitourinary: Genitourinary: Denies hematuria and Denies dysuria Musculoskeletal: Musculoskeletal: Denies arthralgias, Denies joint swelling and Denies neck pain Allergic/Immunologic: Allergic/Immunologic: Denies wheezing PMFSH Past Medical History Medical History Chronic headaches Migraines Surgical History Surgical History History of section 2014 and 2021 History of urinary tract surgery 1991 Family History Family History Father B-cell lymphoma Diabetes mellitus Mother Diabetes mellitus Hypertension Depression Sibling Depression Grandparent Cerebrovascular accident Social History Social History Smoking status: Never smoker Alcohol intake: never Substance use: never Lack of Transportation: No Lack of Food: Never True Current Housing: I Have Housing Concerned About Future Housing: No Difficulty Paying Gas/Electric Bills: No Difficulty Paying for Meds: No Currently Unemployed: No Education: Bachelor's Degree Difficulty w/ Childcare or Family Care: No Spiritual care concerns: No Meds Home Medications and Allergies Home Medications Medication Instructions Recorded Confirmed Type vits 75-iron 28 mg-folic 1 pkg PO DAILY 01/26/22 09/01/22 History acid 800 mcg-omega-3 oral combo pack (One A Day Women's DHA) montelukast 10 mg tablet 10 mg PO DAILY PRN 09/12/22 History norethindrone (contraceptive) 0.35 0.35 mg PO DAILY #84 tabs 10/18/22 10/18/22 Rx mg tablet Allergies Allergy/AdvReac Type Severity Reaction Status Date / Time No Known Allergies Allergy Verified 10/27/22 09:00 Vital Signs Vital Signs - 24 hr 10/27/22 11:15 10/27/22 13:32 10/27/22 13:58 Temperature 36.3 C L Pulse Rate 74 76 81 Respiratory Rate 12 12 14 Blood Pressure 143/86 H 146/96 H 153/99 H Pulse Oximetry 99 98 100 Oxygen Delivery Room Air 10/27/22 14:01 Temperature 36.3 C L Pulse Rate 81 Respiratory Rate 14 Blood Pressure 153/99 H Pulse Oximetry 100 Oxygen Delivery Room Air Exam Const: General: alert; No acute distress Orientation/consciousness: patient oriented x3 Limitations: no limitations HENMT: Head: normocephalic and atraumatic Ears: hearing grossly normal bilaterally Face/Nose/Sinus: Normal external nose present and Normal nares present Mouth: Yes Normal oral and palatal mucosa present and Yes moist mucous membranes Eye
--- NOTE | 2022-10-27 14:51 | WPDHPUPDATE1 ---
History and Physical Update Update Date/Time: 10/27/22 14:51 History and Physical has been reviewed, including an updated exam of the patient. There are NO changes in the patient's condition. Risks, benefits, and alternatives have been discussed and questions answered. Patient agrees to proceed with procedure.
[2022-10-27] MEDS: BUPIVACAINE/EPINEPHRINE 0.5% 30 ML VIAL INFILTRATE (15:46)
[2022-10-27] MEDS: LACTATED RINGERS 1,000 ML 30 ML IV CONT ×2 (15:54→16:55)
--- NOTE | 2022-10-27 15:56 | W.PM.PROC2 ---
Procedure Note - Detailed Date of Procedure 10/27/22 Pre-op Diagnosis Acute calculous cholecystitis Post-op Diagnosis Same Procedure Performed Laparoscopic Cholecystectomy Surgeon Augustine Wiley, DO Anesthesia General and Local (0.5% bupivacaine) Indications This is a 36-year-old woman who presented to the emergency department this morning with epigastric abdominal pain that started last night. She had never experienced pain like this in the past. This started several hours after eating dinner. She is 8 weeks from a . Her and period has been uncomplicated otherwise. A CT of her abdomen and pelvis showed evidence of acute calculous cholecystitis and she had elevated white blood count. Discussions were made with the patient about treatment options and decision was made to proceed with emergent laparoscopic cholecystectomy, possible open. Findings Laparoscopic cholecystectomy was performed. The gallbladder appeared somewhat tense and dilated and had to be decompressed to allow for to be grasped and manipulated. The gallbladder wall was slightly thickened and there was hyperemia and edema around the gallbladder. The cystic duct appeared normal in size. There were at least 1 or 2 gallstones within the gallbladder. The gallbladder was removed and sent to the lab for pathology. No other intra-abdominal abnormalities were noted. Description of Procedure Procedure as well as risks, benefits, and alternatives were discussed with patient. Written consent was obtained and placed in chart prior to procedure. The patient was brought back to surgical suite. Patient was placed in supine position on operating table. Time-out was done to confirm patient and procedure. Patient was then intubated by the anesthesia department. Abdomen was prepped and draped in sterile fashion using chlorhexidine prep. 0.5% bupivacaine with epinephrine was infiltrated at each site of incision. A 5 millimeter incision was made near the umbilicus, and a 5 millimeter Optiview trocar was advanced through the abdominal layers under direct visualization. Once inside the abdominal cavity, carbon dioxide was insufflated to create a pneumoperitoneum. The camera was inserted and the abdomen was inspected. No immediate abnormalities were identified. The patient was placed in reverse Trendelenburg position and rotated slightly to the left. An 11 millimeter incision was made in the subxiphoid region, and an 11 millimeter trocar was inserted under direct visualization. Two 5 millimeter incisions were made in the right upper quadrant, and two 5 millimeter trocars were inserted under direct visualization. The gallbladder was identified and grasped at the fundus and retracted superiorly. It was then grasped at the infundibulum retracted laterally. Careful dissection around the neck of the gallbladder was performed using blunt dissection with a [place] grasper and hook electrocautery. The cystic duct was identified, and a window was created behind it. The cystic artery was also identified and a window was created behind it. The critical view of safety was identified, visualizing the cystic duct running directly into the neck of the gallbladder, and the cystic artery running directly into the wall of the gallbladder. A 5 millimeter clip pari mutuel clerk was then used to place 2 clips proximally and 1 clip distally on both the cystic duct and cystic artery. They were then both transected using endoscopic scissors. Once safely away from the benedict hepatitis, the gallbladder was dissected free from the liver bed using hook electrocautery. Hemostasis was achieved along the way. The gallbladder was removed completely and then removed through the subxiphoid port. The liver bed was then inspected. Hemostasis appeared adequate, and our clips appeared secure. The area was gently irrigated with sterile saline. No other abnormalities were seen. The patient was flattened ou
[2022-10-27] MEDS: oxyCODONE HCL (*CRX) 5 MG TAB IR PO (17:33)
== END 2022-10-27 18:10 | disposition home or self-care (01) ==
LOC: ANHED 12:25 → ANHSURGERY 12:47
PROVIDERS: Emergency Provider Emergency Medicine; PCP Family Medicine; Visit Provider Surgery
PROC: 0FT44ZZ Resection of Gallbladder, Percutaneous Endoscopic Approach (ICD-10-PCS; CPT 47562; principal; 2022-10-27 16:30)
DX: K80.12 Calculus of gallbladder with acute and chronic cholecystitis without obstruction (principal); D72.829 Elevated white blood cell count, unspecified; R79.89 Other specified abnormal findings of blood chemistry; Z20.822 Contact with and (suspected) exposure to COVID-19
CPT/HCPCS: 47562; 36415; 74177; 80053; 81001; 81025; 83690; 84484; 85025; 85055; 85380; 87086; 87636; 88304; 93005; 96361; 96374; 99285; A9270; J1100; J2250; J2543; J2704; J2710; J3010; J7030; J7120; Q9967

== ENCOUNTER 2022-11-02 07:41 | Outpatient (CLI) | payer BC, SELFPAY ==
[2022-11-02 08:33] LABS: Alanine Aminotransferase 452 U/L (6-35); Albumin Level 4.5 g/dL (3.5-5.1); Alkaline Phosphatase 178 U/L (38-126); Aspartate Amino Transferase 95 U/L (14-36); Bilirubin,Total 0.7 mg/dL (0.2-1.3)
== END 2022-11-02 07:42 | disposition home or self-care (01) ==
PROVIDERS: Visit Provider Surgery
DX: R74.8 Abnormal levels of other serum enzymes (principal)
CPT/HCPCS: 36415; 80076

== ENCOUNTER → 2022-11-07 09:06 | Outpatient (CLI) | payer BC, SELFPAY ==
--- NOTE | ~2022-11-07 | MR_ITS ---
EXAMINATION: MR MRCP wo/w con/w 3D wo ind DATE: 11/07/2022 10:29 INDICATION: Choledocholithiasis. TECHNIQUE: Magnetic resonance imaging (MRI) of the abdomen was performed without and with 19 mL Multi [place] intravenous contrast. Thick-slab T2-weighted FSE images were obtained for magnetic resonance ch olangiopancreatography (MRCP). Maximum intensity projection 3-D reconstructions of the volumetric eliana a were created by the technologist. COMPARISON: CT abdomen and pelvis 10/27/22 FINDINGS: ABDOMEN MRI: There is diffuse hepatic steatosis. The gallbladder is absent. The spleen, pancreas, adr enal glands, and left kidney are normal. There is cortical thinning of right kidney. There are cysts in right kidney measuring up to 8 mm. There are no dilated loops of bowel. There are no pathologicall y enlarged lymph nodes. There is no free intraperitoneal fluid. ABDOMEN MRCP: The common duct is normal and measures 2 mm. No choledocholithiasis. IMPRESSION: 1. No choledocholithiasis. 2. Diffuse hepatic steatosis. Reviewed, dictated and finalized at location A. LSIOR PICKER
== END ==
PROVIDERS: PCP Family Medicine; Visit Provider Surgery
DX: K80.20 Calculus of gallbladder without cholecystitis without obstruction (principal); K76.0 Fatty (change of) liver, not elsewhere classified
CPT/HCPCS: 74183; 76376; A9577

== ENCOUNTER 2023-04-27 23:40 | Emergency (ER) | payer BC, SELFPAY ==
--- NOTE | ~2023-04-27 | CT_ITS ---
EXAMINATION: CT abdomen pelvis wo con DATE: 04/28/2023 00:34 INDICATION: Left flank pain. TECHNIQUE: Computed tomography (CT) of the abdomen and pelvis was performed without intravenous contr ast. Automated exposure control and iterative reconstruction technique were employed. The dose-length product was 1228.09 mGy-cm. COMPARISON: CT abdomen and pelvis 10/27/22, MRCP 11/07/22 FINDINGS: The visualized portions of the lung bases demonstrate minimal atelectasis. A calcified righ t lung nodule and calcified right hilar lymph nodes are consistent with old granulomatous disease. No pleural effusion. The heart size is normal. No pericardial effusion. There is diffuse hepatic steato sis. There are changes of cholecystectomy. The spleen, pancreas, and adrenal glands are normal. There is cortical thinning in right kidney. There is a 1 mm stone in right kidney. There is mild left hydr onephrosis. There is a 7 mm stone at left ureteropelvic junction. There is an intrauterine device in expected position. There are no dilated loops of bowel. The appendix is normal. There are no patholog ically enlarged lymph nodes. There is no free intraperitoneal fluid. There is mild lumbar spondylosis . IMPRESSION: 1. 7 mm stone at left ureteropelvic junction with mild left hydronephrosis. 2. 1 mm nonobstructing right kidney stone. Reviewed, dictated and finalized at location A.
[2023-04-27 23:41] VITALS: BP 150/95; PULSE 88; RESP 14; TEMP 36.2; O2SAT 99
--- NOTE | 2023-04-28 | ED.GENADULT ---
HPI - General Adult General Chief complaint: Urogenital-Female Stated complaint: kidney stone? Time Seen by Provider: 04/27/23 23:53 History of Present Illness HPI narrative: Patient 37-year-old female who presents the emergency department with chief complaint of left flank pain. Patient reports that she started having an uncomfortable feeling in her left flank area reports that it comes around to the abdomen and feels as though she is having menstrual cramps. Patient reports that she does have an IUD in place and has had her last period in October the patient reports that she is currently breast-feeding reports that she is taken ibuprofen around 9 PM that is helped the pain a little bit but has not completely resolved her discomfort. The patient reports that she is not able to get comfortable in any position and states she is concerned that she may have a kidney stone. Related Data Home Medications Medication Instructions Recorded Confirmed vits 75-iron 28 mg-folic 1 pkg PO DAILY 01/26/22 02/19/23 acid 800 mcg-omega-3 oral combo pack (One A Day Women's DHA) montelukast 10 mg tablet 10 mg PO DAILY PRN 09/12/22 02/19/23 levonorgestrel 21 mcg/24 hours (8 1 device intrauterine ONCE 02/06/23 02/19/23 yrs) 52 mg intrauterine device (Mirena) Allergies Allergy/AdvReac Type Severity Reaction Status Date / Time No Known Allergies Allergy Verified 04/27/23 23:40 Review of Systems Review of Systems: A 10 system review of systems was completed on the patient and is negative except for what is stated in the HPI. Nursing and ancillary documentation was reviewed. [facility] Past Medical History Medical History Chronic headaches Migraines Surgical History Surgical History History of section 2014 and 2021 History of urinary tract surgery 1991 Hx laparoscopic cholecystectomy 10/27/22 Family History Family History Father B-cell lymphoma Diabetes mellitus Mother Diabetes mellitus Hypertension Depression Sibling Depression Grandparent Cerebrovascular accident Social History Social History Smoking status: Never smoker Alcohol intake: never Substance use: never Lack of Transportation: No Lack of Food: Never True Current Housing: I Have Housing Concerned About Future Housing: No Difficulty Paying Gas/Electric Bills: No Difficulty Paying for Meds: No Currently Unemployed: No Education: Bachelor's Degree Difficulty w/ Childcare or Family Care: No Living arrangements: with family Spiritual care concerns: No Exam Narrative: GENERAL: Well-appearing, well-nourished, and in no acute distress. HEAD: Normocephalic, atraumatic. EYES: PERRLA and EOMI. ENT: Nares clear, no rhinorrhea or epistaxis. Mucous membranes moist. NECK: Supple. CHEST: Clear to auscultation. No respiratory distress. HEART: Regular rate and rhythm. No murmur heard. Normal peripheral pulses. ABDOMEN: Soft, nontender, nondistended, normal active bowel sounds. EXTREMITIES: Normal range of motion. No edema. SKIN: Warm, dry, no rash. NEURO: No focal deficits. Alert and oriented x3. PSYCH: Normal mood and affect. Course Vital Signs Vital signs: Vital Signs Temperature 36.2 C L 04/27/23 23:41 Pulse Rate 88 04/27/23 23:41 Respiratory Rate 14 04/27/23 23:41 Blood Pressure 150/95 H 04/27/23 23:41 Pulse Oximetry 99 04/27/23 23:41 Oxygen Delivery Room Air 04/27/23 23:41 Temperature 36.2 C L 04/27/23 23:41 Pulse Rate 88 04/27/23 23:41 Respiratory Rate 14 04/27/23 23:41 Blood Pressure 150/95 H 04/27/23 23:41 Pulse Oximetry 99 04/27/23 23:41 Oxygen Delivery Room Air 04/27/23 23:41
[2023-04-28 00:11] LABS: Appearance Urine Clear (Clear); Bacteria Urine None Seen /hpf; Bilirubin Urine Negative (Negative); Blood Urine 2+ (Negative); Color Urine Yellow (Yellow); Glucose Urine UA Negative (Negative); Ketones Urine Negative (Negative); Leukocyte Esterase Ur Negative LEU/UL (Negative); Nitrate Urine Negative (Negative); Non Pathogenic Casts 0-2; Protein Urine Trace mg/dL (Negative); RBC Urine 51-100 /hpf (0-2); Specific Grav Ur 1.013 (1.001-1.035); Squamous Epithelial Cell Urine None seen /hpf (Few); Urobilinogen Urine 0.2 mg/dL (<2.0); WBC Urine 0-5 /hpf
[2023-04-28 00:13] LABS: Add Urine Microscopic? YES
[2023-04-28 00:26] LABS: Basophils Absolute Auto 0.1 K/mm3 (0.0-0.1); Basophils Percent Auto 0.6 % (0.2-1.2); Eosinophils Absolute Auto 0.1 K/mm3 (0-0.3); Eosinophils Percent Auto 1.4 % (0-4.4); Hematocrit 39.9 % (37.0-47.0); Hemoglobin 12.8 g/dL (12.0-15.0); Immature Granulocyte Absolute 0.02 K/mm3 (0.00-0.031); Immature Granulocyte Percent A 0.2 % (0-0.5); Lymphocytes Absolute Auto 1.59 K/mm3 (0.9-3.2); Mean Corpuscular HGB Conc 32.1 g/dl (32-36); Mean Corpuscular Hemoglobin 28.7 pg (26-34); Mean Corpuscular Volume 89.5 fl (80-100); Mean Platelet Volume 8.6 fl (7.4-10.4); Monocytes Absolute Auto 0.4 K/mm3 (0.1-0.6); Monocytes Percent Auto 5.1 % (2.6-8.5); Neutrophils Absolute Auto 6.2 K/mm3 (1.3-6.7); Neutrophils Percent Auto 73.7 % (45.5-73.1); Platelet Count Result 367 k/mm3 (150-375); Red Blood Count 4.46 M/mm3 (4.2-5.4); Red Cell Distribution Width 13.8 % (11.5-14.5); White Blood Count 8.4 K/mm3 (4.5-10.0)
[2023-04-28 00:36] LABS: Alanine Aminotransferase 22 U/L (6-35); Albumin Level 4.3 g/dL (3.5-5.1); Alkaline Phosphatase 111 U/L (38-126); Anion Gap 5 mmol/L (8-16); Aspartate Amino Transferase 23 U/L (14-36); Bilirubin,Total 0.4 mg/dL (0.2-1.3); Blood Urea Nitrogen 13 mg/dL (7-17); Calcium 8.6 mg/dL (8.4-10.2); Carbon Dioxide 26 mmol/L (22-30); Chloride 109 mmol/L (98-107); Estimated CRCL calculation 83 ml/min; Estimated Glomerular Filt Rate > 60; Glucose 128 mg/dL (65-110); Potassium 3.9 mmol/L (3.4-5.0); Sodium 140 mmol/L (137-145)
[2023-04-28] MEDS: HYDROcodone/acetaminophen (*CRX) 5-325 MG TABLET 1 TAB PO (01:52)
[2023-04-28 01:53] VITALS: BP 134/87; PULSE 83; RESP 16; O2SAT 97
[2023-04-28] MEDS: TAMSULOSIN HCL 0.4 MG CAPSULE PO (01:53)
== END 2023-04-28 01:55 | disposition home or self-care (01) ==
PROVIDERS: Emergency Provider Emergency Medicine; PCP Family Medicine
DX: N13.2 Hydronephrosis with renal and ureteral calculous obstruction (principal); Z90.49 Acquired absence of other specified parts of digestive tract
CPT/HCPCS: 36415; 74176; 80053; 81001; 81025; 85025; 99284; A9270

== ENCOUNTER 2023-05-01 10:55 | Outpatient (CLI) | payer BC, SELFPAY ==
--- NOTE | ~2023-05-01 | XR_ITS ---
EXAMINATION: XR abdomen/kub 1V INDICATION: Left flank pain TECHNIQUE: Supine views of the abdomen were obtained on 2 radiographs. COMPARISON: CT, 04/28/2023 FINDINGS: An 8 mm stone is seen at the left ureteropelvic junction. No definite additional urolithias is is identified. An IUD is noted in the pelvis. There is a phlebolith of the right pelvis. The bowel gas pattern is normal. Cholecystectomy clips are present in the right upper quadrant. IMPRESSION: 1. 8 mm stone at the left ureteropelvic junction. Reviewed, dictated and finalized at location L.
== END 2023-05-01 10:56 | disposition home or self-care (01) ==
PROVIDERS: PCP Family Medicine; Visit Provider Urology
DX: N20.0 Calculus of kidney (principal)
CPT/HCPCS: 74018

== ENCOUNTER 2023-05-04 00:17 | Day surgery (SDC) | payer BC, SELFPAY ==
[2023-05-01 14:02] VITALS: BMI 38.7
--- NOTE | 2023-05-01 14:10 | PC.NURSE ---
Report to the Outpatient Waiting Room, entrance under the green pavilion located off [facility], at time 11:00 on date 05/04/23. Planned Procedure Time: 1:00. Time changes happen often and if your time is changed the preop area will call you the afternoon before. - You and your visitor will be asked to self-screen and do not enter if you have any COVID symptoms. - A mask is optional within the hospital at this time. Patients may have clear liquids (water, carbonated beverages, clear teas, apple juice) until 3 hours prior to surgery with a maximum of 20 ounces. - No food from midnight until time of surgery Take the following medications with a SIP of water the morning of surgery: PAIN PILL IF NEEDED DO NOT STOP ANY OF YOUR OTHER PRESCRIPTION MEDICATIONS PRIOR TO SURGERY ?EXCEPT THE FOLLOWING Medications to discontinue per physician: VITAMINS Date to take last dose: NO MORE UNTIL AFTER SURGERY Please no make-up, nail telugu, hairspray, perfume, deodorant, or body powder the day of surgery. No jewelry (including any body piercings) or valuables the day of surgery, leave them at home. Please take a shower or bath the night before, or the morning of, surgery with an antibacterial soap. Wear comfortable, loose fitting clothing. - Jewelry must be removed prior to entering the operating room. Rings and piercings that are not removed may be cut off. - The hospital will not accept responsibility for valuables. - Please leave all valuables, including medications, at home the day of surgery. If you are going home after surgery, a licensed charter bus driver must drive you home. - NO public transportation without another adult if you receive anesthesia. - We recommend that an adult stay with you for 24 hours following discharge. - We also recommend that you do not drive, make important decision, drink alcoholic beverages, or take any drugs that were not prescribed by your health care provider for at least 24 hours after your discharge time. Follow any additional instructions given to you from your surgeon. If you or anyone in your household have experienced Covid symptoms in the past week, please notify your surgeon or the nurse liaison at the phone number below for possible testing. Telephone instructions given to PT - QUINTEN SCOTT and asked if any additional questions and then verbalized understanding. Patient advised to call surgeon office or pre surgery nurse liaison [phone] if any additional questions.
[2023-05-04] VITALS (7 sets, daily range): BP systolic 129–146; BP diastolic 78–97; PULSE 60–84; RESP 15–18; TEMP 36.3–36.4; O2SAT 96–100
--- NOTE | ~2023-05-04 | XR_ITS ---
EXAMINATION: XR abdomen/kub 1V INDICATION: Left flank ureteral stone TECHNIQUE: Supine views of the abdomen were obtained on 2 radiographs. COMPARISON: 05/01/2023 FINDINGS: There is any millimeters stone at the left ureteropelvic junction projecting lateral to the left L1 transverse process. No additional urolithiasis is identified. An IUD is noted in the pelvis. The bowel gas pattern is normal. There are cholecystectomy clips in the right upper quadrant. IMPRESSION: 1. Stable 8 mm stone at the left ureterovesicular junction. Reviewed, dictated and finalized at location B.
--- NOTE | 2023-05-04 06:35 | WPDHPUPDATE1 ---
History and Physical Update Update Date/Time: 05/04/23 06:35 History and Physical has been reviewed, including an updated exam of the patient. There are NO changes in the patient's condition. Risks, benefits, and alternatives have been discussed and questions answered. Patient agrees to proceed with procedure.
--- NOTE | 2023-05-04 07:44 | WPDANESEPPF ---
Anes - Initial Pre Proc Eval Procedure: Operation Date: 05/04/23 13:00 Proposed Procedures p Left Extracorporeal Shock Wave Lithotripsy - Cole Bazzi MD Date/Time: 05/04/23 07:44 Surgeon: Cole Bazzi MD Pre Op Diagnosis: Lt Renal Stone Patient Data Age: 37 Gender: F Height: 1.57 m Weight: 96.2 kg Allergies Allergy/AdvReac Type Severity Reaction Status Date / Time No Known Allergies Allergy Verified 05/04/23 11:34 Home Medications Medication Instructions Recorded Confirmed Type vits 75-iron 28 mg-folic 1 pkg PO DAILY 01/26/22 05/04/23 History acid 800 mcg-omega-3 oral combo pack (One A Day Women's DHA) montelukast 10 mg tablet 10 mg PO DAILY PRN Allergy Symptoms 09/12/22 05/04/23 History levonorgestrel 21 mcg/24 hours (8 1 device intrauterine ONCE 02/06/23 05/01/23 History yrs) 52 mg intrauterine device (Mirena) hydrocodone 5 mg-acetaminophen 325 1 tablet PO Q6H PRN pain 3 days 04/28/23 05/04/23 Rx mg tablet #12 tabs ondansetron 4 mg disintegrating 4 mg PO Q8H PRN nausea and 04/28/23 05/04/23 Rx tablet vomiting #10 tabs Patient hx anesthesia problems: none Family hx anesthesia problems: none Results Review: All pre-operative results and documents have been reviewed as part of the pre-operative evaluation. [facility] Past Medical History Medical History (Updated 05/04/23 @ 07:45 by Jonathan Calvin MD) Chronic headaches Migraines Obesity Surgical History Surgical History History of section 2014 and 2021 History of urinary tract surgery 1991 Hx laparoscopic cholecystectomy 10/27/22 Family History Family History Father B-cell lymphoma Diabetes mellitus Mother Diabetes mellitus Hypertension Depression Sibling Depression Grandparent Cerebrovascular accident Social History Social History Smoking status: Never smoker Alcohol intake: never Substance use: never Substance use type: does not use Lack of Transportation: No Lack of Food: Never True Current Housing: I Have Housing Concerned About Future Housing: No Difficulty Paying Gas/Electric Bills: No Difficulty Paying for Meds: No Currently Unemployed: No Education: Bachelor's Degree Difficulty w/ Childcare or Family Care: No Living arrangements: with family Spiritual care concerns: No Anes - Eval Final PreProcedure Day of Procedure 05/04/23 07:44 Patient weight: obese Heart: regular rate and rhythm Lungs: clear to auscultation Airway: Mallampati scale class II Neurological: alert and oriented Last oral intake: >/= 8 hours ASA classification: II Emergent: no Anesthetic plan: proceed Anesthesia type and monitoring: general LMA and standard monitoring Results Review: All pre-operative results and documents have been reviewed as part of the pre-operative evaluation. Informed Consent: The patient's anesthetic plan and its attendant risks and benefits were discussed with the patient/family/POA. Questions were solicited and answers provided to the satisfaction of the patient/family/POA.
[2023-05-04 12:11] LABS: INR 0.9
[2023-05-04 12:12] LABS: Partial Thromboplastin Time 28.8 SECONDS (22.3-36.8)
[2023-05-04] MEDS: LACTATED RINGERS 1,000 ML 30 ML IV CONT (12:25)
--- NOTE | 2023-05-04 13:15 | W.PM.PROC2 ---
Procedure Note - Detailed Date of Procedure 05/04/23 Pre-op Diagnosis Lt Renal Stone Post-op Diagnosis Same Procedure Performed Left ESWL Surgeon Cole Bazzi MD Anesthesia General Description of Procedure The patient was brought to the operative suite where he was placed in the supine position on the Dornier lithotripsy table. The focal point of the lithotripter was placed at a 8mm left renal pelvic calculus. A total of 2000 shocks were delivered at a power setting of 3. There appeared to be good fragmentation of the stone. The patient tolerated the procedure well and was taken to the recovery room in good condition. Drains No Packing No Pathology Yes Complications No immediate complications Condition Stable
[2023-05-04] MEDS: fentaNYL CITRATE INJ (*CRX) 100 MCG/2 ML VIAL 25 MCG IV PUSH ×2 (14:02→14:05)
== END 2023-05-04 15:19 | disposition home or self-care (01) ==
PROVIDERS: PCP Family Medicine; Visit Provider Urology
PROC: (CPT 50590; principal; 2023-05-04 13:00)
DX: N20.0 Calculus of kidney (principal); E66.9 Obesity, unspecified; Z68.38 Body mass index [BMI] 38.0-38.9, adult
CPT/HCPCS: 50590; 36415; 74018; 85610; 85730; J1100; J2250; J2405; J2704; J3010; J7120

== ENCOUNTER 2023-05-15 11:00 | Outpatient (CLI) | payer BC, SELFPAY ==
--- NOTE | ~2023-05-15 | XR_ITS ---
XR abdomen/kub 1V 05/15/2023 11:11 INDICATION: Left renal stone TECHNIQUE: KUB COMPARISON: None FINDINGS: Bowel gas pattern is normal. There are cholecystectomy clips. Moderate colonic fecal loadin g. There is no evidence of free air, mass, organomegaly, ascites or obstruction. No abnormal calculi are seen. Left UVJ stone seen on prior study not appreciated on the current examination. The bones a ppear intact. There is an IUD in the pelvis. IMPRESSION: 1: No acute abdominal abnormality identified. Reviewed, dictated and finalized at location A.
== END 2023-05-15 11:01 | disposition home or self-care (01) ==
PROVIDERS: PCP Family Medicine; Visit Provider Urology
DX: N20.0 Calculus of kidney (principal)
CPT/HCPCS: 74018

== ENCOUNTER 2023-11-29 07:19 | Outpatient (CLI) | payer BC, SELFPAY ==
--- NOTE | ~2023-11-29 | XR_ITS ---
EXAMINATION: XR abdomen/kub 1V INDICATION: Calculus of the kidney TECHNIQUE: Supine views of the abdomen were obtained on 2 radiographs. COMPARISON: 05/15/2023 FINDINGS: No visible urolithiasis is identified. There is a phlebolith of the right pelvis. The bowel gas pattern is normal. A moderate volume of colonic stool is present. Cholecystectomy clips are note d. There is an IUD in the pelvis. IMPRESSION: 1. No visible urolithiasis. Reviewed, dictated and finalized at location L. ITY CONTROL TECH [employer]S IMPRESSION: 1. No visible urolithiasis.
== END 2023-11-29 07:20 | disposition home or self-care (01) ==
PROVIDERS: PCP Family Medicine; Visit Provider Urology
DX: N20.0 Calculus of kidney (principal)
CPT/HCPCS: 74018

== ENCOUNTER 2024-01-23 10:06 | Outpatient (CLI) | payer BC, SELFPAY ==
--- NOTE | ~2024-01-23 | XR_ITS ---
Left ankle Technique: AP, oblique, and lateral views were obtained. Clinical History: Pain Findings: No acute fracture or dislocation is seen. Osseous alignment is anatomic. Ankle mortise and other visualized joint spaces are preserved. Soft tissues are otherwise unremarkable. Impression: Unremarkable left ankle. Reviewed, dictated and finalized at location . Impression: Unremarkable left ankle.
== END 2024-01-23 10:07 | disposition home or self-care (01) ==
PROVIDERS: PCP Family Medicine; Visit Provider Family Medicine
DX: S99.912A Unspecified injury of left ankle, initial encounter (principal)
CPT/HCPCS: 73610

== ENCOUNTER 2024-03-26 00:16 | Day surgery (SDC) | payer BC, SELFPAY ==
[2024-03-12 11:09] VITALS: BMI 42.7
[2024-03-26 12:53] VITALS: BP 151/96; PULSE 86; RESP 18; TEMP 36.6; O2SAT 99
[2024-03-26] MEDS: LACTATED RINGERS 1,000 ML 150 ML IV CONT (13:17)
--- NOTE | 2024-03-26 13:23 | WPDANESEPPF ---
Anes - Initial Pre Proc Eval Procedure: Operation Date: 03/26/24 14:00 Proposed Procedures p Esophagogastroduodenoscopy & Colonoscopy - Zaid Cho MD Date/Time: 03/26/24 13:23 Surgeon: Zaid Cho MD Pre Op Diagnosis: fecal urgency, noninfective gastroenteritis and co Patient Data Age: 38 Gender: F Height: 1.55 m Weight: 101.8 kg Last Vital Signs Temp 97.8 F 03/26/24 12:53 Pulse 86 03/26/24 12:53 Resp 18 03/26/24 12:53 BP 151/96 H 03/26/24 12:53 Pulse Ox 99 03/26/24 12:53 O2 Del Method Room Air 03/26/24 12:53 Allergies Allergy/AdvReac Type Severity Reaction Status Date / Time No Known Allergies Allergy Verified 03/26/24 12:53 Home Medications Medication Instructions Recorded Confirmed Type montelukast 10 mg tablet 10 mg PO DAILY PRN Allergy Symptoms 09/12/22 03/12/24 History levonorgestrel 21 mcg/24 hr (up to 1 device intrauterine ONCE 02/06/23 03/12/24 History 8 years) 52 mg intrauterine device (Mirena) dicyclomine 20 mg tablet 20 mg PO BID PRN abdominal pain 01/04/24 03/12/24 Rx #60 tabs rizatriptan 10 mg tablet 10 mg PO DAILY PRN migraines 01/04/24 03/12/24 History colestipol 1 gram tablet 1 g PO BID #60 tabs 02/27/24 03/12/24 Rx Patient hx anesthesia problems: none Family hx anesthesia problems: none Results Review: All pre-operative results and documents have been reviewed as part of the pre-operative evaluation. [facility] Past Medical History Medical History (Updated 02/27/24 @ 11:38 by Macie Iglesias APRN) Migraines Obesity Surgical History Surgical History (Updated 02/27/24 @ 11:38 by Macie Iglesias APRN) History of section 2014 and 2021 History of urinary tract surgery ureters repositioned 1991 Hx laparoscopic cholecystectomy 10/27/22 Hx of lithotripsy Family History Family History Father B-cell lymphoma Diabetes mellitus Mother Diabetes mellitus Hypertension Depression Sibling Depression Grandparent Cerebrovascular accident Social History Social History Smoking status: Never smoker Alcohol intake: never Substance use: never Substance use type: does not use Do You Feel Safe in your Home?: Yes Lack of Transportation: No Lack of Food: Never True Current Housing: I Have Housing Concerned About Future Housing: No Difficulty Paying Gas/Electric Bills: No Difficulty Paying for Meds: No Currently Unemployed: No Education: Bachelor's Degree Difficulty w/ Childcare or Family Care: No Living arrangements: with family Gender identity (if verbalized by the patient): Female Sexual Orientation (if Verbalized by the Patient): Straight or Heterosexual Spiritual care concerns: No Anes - Eval Final PreProcedure Day of Procedure 03/26/24 13:23 Patient weight: morbidly obese Heart: regular rate and rhythm Lungs: clear to auscultation Airway: Mallampati scale class II Neurological: alert and oriented Last oral intake: >/= 8 hours ASA classification: III Emergent: no Anesthetic plan: proceed Anesthesia type and monitoring: general GIVS and standard monitoring Results Review: All pre-operative results and documents have been reviewed as part of the pre-operative evaluation. Informed Consent: The patient's anesthetic plan and its attendant risks and benefits were discussed with the patient/family/POA. Questions were solicited and answers provided to the satisfaction of the patient/family/POA.
--- NOTE | 2024-03-26 13:36 | WPDHPUPDATE1 ---
History and Physical Update Update Date/Time: 03/26/24 13:36 History and Physical has been reviewed, including an updated exam of the patient. There are NO changes in the patient's condition. Risks, benefits, and alternatives have been discussed and questions answered. Patient agrees to proceed with procedure.
--- NOTE | 2024-03-26 13:56 | SUR.OPER ---
EGD start 1347 end 1350. Colonoscopy start 1355.
[2024-03-26 14:08] VITALS: BP 124/79; PULSE 87; RESP 23; O2SAT 100
[2024-03-26 14:18] VITALS: BP 140/89; PULSE 76; RESP 22; O2SAT 100
[2024-03-26 14:28] VITALS: BP 148/91; PULSE 76; RESP 18; O2SAT 100
== END 2024-03-26 14:32 | disposition home or self-care (01) ==
PROVIDERS: PCP Family Medicine; Referring Provider Nurse Practitioner; Visit Provider Internal Medicine Gastroenterology
PROC: 0DJ08ZZ Inspection of Upper Intestinal Tract, Via Natural or Artificial Opening Endoscopic (ICD-10-PCS; CPT 43235; principal; 2024-03-26 14:00)
DX: R19.7 Diarrhea, unspecified (principal); K64.8 Other hemorrhoids; E66.01 Morbid (severe) obesity due to excess calories; Z68.41 Body mass index [BMI] 40.0-44.9, adult
CPT/HCPCS: 45380; 43239; 88305; J2704; J7120

== ENCOUNTER 2024-06-17 13:36 | Outpatient (CLI) | payer BC, SELFPAY ==
--- NOTE | ~2024-06-17 | US_ITS ---
Pelvic ultrasound. Clinical History: IUD surveillance Technique: Realtime transabdominal and transvaginal scanning of the pelvis was performed. Color flow Doppler and Doppler spectral analysis were performed. Findings: The uterus is anteverted. The endometrial stripe has a thickness of 6 mm. IUD in satisfact ory position. No focal mass is identified. Cervical nabothian cysts noted. Neither ovary seen. No adnexal mass seen. There is no evidence of free fluid in the cul de sac. Impression: IUD in place. Reviewed, dictated and finalized at location M. Impression: IUD in place.
== END 2024-06-17 13:37 ==
PROVIDERS: PCP Obstetrics & Gynecology; Visit Provider Obstetrics & Gynecology
DX: Z30.431 Encounter for routine checking of intrauterine contraceptive device (principal)
CPT/HCPCS: 76830; 76856

== ENCOUNTER 2025-05-31 08:04 | Emergency (ER) | payer BC, SELFPAY ==
--- NOTE | 2025-05-31 08:07 | ED_ITS ---
HPI - Eye Problem General Chief complaint: Eye Problems Stated complaint: pink eye Time Seen by Provider: 05/31/25 08:07 Source: patient Mode of arrival: ambulatory Limitations: no limitations History of Present Illness HPI Narrative: Patient is a 39-year-old female who presents with bilateral eye irritation, redness, tearing and drainage the last 3 days. No visual changes or light sensitivity. Denies any trauma to eyes. Related Data Home Medications ?Medication ?Instructions ?Recorded ?Confirmed ?Last Taken ?Type montelukast 10 mg tablet 10 mg PO DAILY PRN Allergy Symptoms 09/12/22 05/31/25 05/03/23 History levonorgestrel (Mirena) 1 device intrauterine ONCE 02/06/23 05/31/25 Unknown History rizatriptan 10 mg tablet 10 mg PO DAILY PRN migraines 01/04/24 05/31/25 Unknown History Allergies Allergy/AdvReac Type Severity Reaction Status Date / Time No Known Allergies Allergy Verified 05/31/25 08:18 Review of Systems Review of Systems: All systems reviewed & are unremarkable except as noted in HPI and below Constitutional: Constitutional: Denies body ache(s), Denies fever(s), Denies headache(s), Denies malaise and Denies weakness Eyes: Eyes: Denies blurry vision, Reports eye discharge, Reports irritation, Reports itchy eyes, Denies loss of vision and Denies eye pain ENT: Denies otalgia, Denies headache(s), Denies nasal discharge, Denies sinus pain and Denies sore throat Cardiovascular: Cardiovascular: Denies chest pain, Denies irregular heart rhythm and Denies dyspnea Respiratory: Respiratory: Denies dyspnea Gastrointestinal: Gastrointestinal: Denies abdominal pain, Denies diarrhea, Denies nausea and Denies vomiting Musculoskeletal: Musculoskeletal: Denies back pain, Denies myalgias and Denies arthralgias Integumentary/Breasts: Skin/Breast: Denies pruritus and Denies rash Neurologic: Denies headache(s), Denies loss of vision and Denies weakness Psychiatric: Psychiatric: Reports no additional psychiatric complaints Allergic/Immunologic: Allergic/Immunologic: Reports itchy eyes PMFSH Past Medical History Medical History Obesity Migraines Surgical History Surgical History Hx of lithotripsy Hx laparoscopic cholecystectomy 10/27/22 History of section 2014 and 2021 History of urinary tract surgery ureters repositioned 1991 Family History Family History Father B-cell lymphoma Diabetes mellitus Mother Diabetes mellitus Hypertension Depression Sibling Depression Grandparent Cerebrovascular accident Social History Social History Smoking status: Never smoker Alcohol intake: never Substance use: never Substance use type: does not use Do You Feel Safe in your Home?: Yes Lack of Transportation: No Lack of Food: Never True Current Housing: I Have Housing Concerned About Future Housing: No Difficulty Paying Gas/Electric Bills: No Difficulty Paying for Meds: No Currently Unemployed: No Education: Bachelor's Degree Difficulty w/ Childcare or Family Care: No Living arrangements: with family Gender identity (if verbalized by the patient): Female Sexual Orientation (if Verbalized by the Patient): Straight or Heterosexual Spiritual care concerns: No Comments At time of signature, agree with nursing past medical, surgical, social and family history. There is no relevant family history pertinent to the presenting complaint. Exam Const: General: cooperative, healthy appearing, comfortable, no acute distress and well nourished Nutritional Appearance: well nourished Orientation/consciousness: patient oriented x3 Limitations: no limitations HENMT: Head: normal to inspection, normocephalic and atraumatic Ears: external ears normal Face/Nose/Sinus: Normal external nose present, normal facial exam and face symmetric Face and sinus: normal facial exam and face symmetric Mouth: Yes lip normal Eyes: General: appearance normal, both eyes and all related structures Visual Wilks: normal visual wilks by confrontation Alignment and Position: alignment normal and position normal Periorbital: periorbital findings normal Eyelids: eyelids normal Conjunctivae: conjunctival abnormality bilateral conjunctival injection diffuse and discharge mucoid Sclera: scleral abnormality bilateral scleral injection diffuse Pupils: Equal, round and reactive pupils present EOM: EOMs intact bilaterally Direct Ophthalmoscopy: no photophobia Other: No hyphema, no foreign body under the lids. Neck: Neck: normal visual inspection, full ROM, no lymphadenopathy and no meningeal signs Chest: Chest palpation & inspection: normal inspection of the chest Resp: Effort & Inspection: normal respiratory effort and able to speak in complete sentences Auscultation: clear to auscultation bilaterally Cardio: Rate: regular rate Rhythm: regular rhythm Heart sounds: S1 normal heart sound present and S2 normal heart sound present GI: Inspection: normal to inspection Skin: General skin exam: normal color and no rashes or lesions noted Neuro: General: patient oriented x3, moves all extremities and no meningeal signs Cranial nerves: Yes Equal, round and reactive pupils present Speech: normal speech Gait exam (Neuro): Normal gait present Extrem: General: normal to inspection, full ROM and no edema Psych: Appearance: grossly normal and well kempt Mental Status: mental status grossly normal Speech and movement: Normal speech and movement present Affect: normal affect Attitude: cooperative Thought process: Normal thought process present Course Course Emergency Course: Patient is aware of diagnosis, understands and agrees to treatment plan. Anticipatory guidance given. Patient agrees to follow-up as directed and is aware of reasons to seek care at the emergency department. Portions of this record may have been created with voice recognition software Level of Care: Express Care Visit Vital Signs Vital signs: Reviewed MDM - Eye Problem MDM Narrative Medical decision making narrative: Exam findings show no acute concerns or changes; patient is non-toxic appearing and is in no distress.? Patient is appropriate for outpatient treatment and follow-up Discharge instructions reviewed with patient and family, as well as provided in writing per nursing staff. The instructions also include specific and strict return/GO TO THE ER as well as f/u information. All questions have been answered, and the patient deny any further questions with discharge and discharge plan. Consideration of the following conditions may be warranted for the presenting problem, they are not final diagnoses: Bacterial conjunctivitis, allergic conjunctivitis, viral conjunctivitis, foreign body, blepharitis, chalazion, hordeolum, corneal abrasion. Medical Records Attestation: I reviewed the patient's medical records. Discharge Plan Discharge Clinical Impression: Conjunctivitis Qualifiers: Conjunctivitis type: acute Acute conjunctivitis type: bacterial Laterality: bilateral Qualified Code(s): H10.33 - Unspecified acute conjunctivitis, bilateral Patient Disposition: Home Condition: Stable Instructions: Conjunctivitis (ED) Additional Instructions: Eye drops as prescribed. -Do this for 3 to 4 days until all redness and discharge has disappeared. -Cold compresses to the affected eye for comfort -May need warm compresses to remove debris in the morning -When cleaning the eyes used a washcloth/cotton ball in one direction then change washcloths/cotton ball before using it on another eye. -Do not share medicine--do not touch the eye with the medicine -Alternate or take Tylenol or ibuprofen as directed in the bottle for pain -Avoid screen time--television, computer, tablet or phone. -Practice good handwashing and hygiene to prevent spread of infection Follow-up with PCP or supervisor electronic coils if condition is not improving in 2-3days. Go to the emergency room if you have pain behind your eye, pressure behind her eye, difficulty seeing, or other severe symptoms Patient Language: Albanian Prescriptions: New polymyxin B sulf-trimethoprim 10,000 unit- 1 mg/mL drops 1 drp EACH EYE Q3H 7 Days Qty: 10 0RF Rx Instructions: while awake; do not exceed 6 doses in 24 hours No Action Mirena 21 mcg/24 hours (8 yrs) 52 mg intrauterine device 1 device intrauterine ONCE Rx Instructions: Inserted 12/14/22 montelukast 10 mg tablet 10 mg PO DAILY PRN (Reason: Allergy Symptoms) rizatriptan 10 mg tablet 10 mg PO DAILY PRN (Reason: migraines) Follow-up/Referrals: Robert Thomas MD [Primary Care Provider] - 3 Days Stand Alone Forms: Work/School Release IP Time of Disposition: 08:27
[2025-05-31 08:20] VITALS: BP 136/93; PULSE 108; RESP 16; TEMP 36.8; O2SAT 100
== END 2025-05-31 08:31 | disposition home or self-care (01) ==
PROVIDERS: Emergency Provider Nurse Practitioner Family; PCP Family Medicine
DX: H10.33 Unspecified acute conjunctivitis, bilateral (principal); E66.9 Obesity, unspecified; Z68.36 Body mass index [BMI] 36.0-36.9, adult
CPT/HCPCS: 99213; G0463